=== PATIENT | female | born 1940 | race Caucasian/White ===

== ENCOUNTER 2017-03-30 12:16 | Emergency (ER) | payer MEDICARE, BC ==
[2017-03-30 12:28] VITALS: BP 161/100
== END 2017-03-30 13:23 | disposition left against medical advice (07) ==
LOC: ED 12:16
DX: Z53.21 Procedure and treatment not carried out due to patient leaving prior to being seen by health care provider (principal)

== ENCOUNTER 2017-07-14 13:50 | Emergency (ER) | payer MEDICARE, BC ==
[2017-07-14] MEDS ORDERED: SODIUM CHLORIDE FLUSH 0.9% 10 ML SYRINGE IVP ONE (14:10)
--- NOTE | 2017-07-14 14:26 | ED Physician Documentation ---
PD HPI HEADACHE - Stated complaint Stated Complaint: MICHELE - Chief complaint Chief Complaint: Neuro - History obtained from History obtained from: Patient, Family - History of Present Illness Timing - onset: How many hours ago (6) Timing - onset during: Sleep Timing - duration: Hours (6) Timing - details: Gradual onset Pain level max: 9 Pain level now: 9 Worst headache ever?: No: Worst headache ever? Location: Left Quality: Throbbing, Aching Associated symptoms: No: Fever, Stiff neck, Nausea, Vomiting, Weakness, Numbness , Syncope, Seizure, Eye pain, Vision changes Improved by: Rest, Dark room Worsened by: Light, Noise Contributing factors: No: Possible carbon monoxide, Recent illness, Trauma Similar symptoms before: Diagnosis (migraines) Recently seen: Not recently seen Review of Systems Ten Systems: 10 systems reviewed and negative Constitutional: denies: Fever, Chills Eyes: denies: Photophobia Ears: denies: Ear pain Nose: denies: Rhinorrhea / runny nose, Congestion Throat: denies: Sore throat Cardiac: denies: Chest pain / pressure Respiratory: denies: Cough GI: denies: Nausea, Vomiting, Diarrhea Skin: denies: Rash Musculoskeletal: denies: Neck pain, Back pain Neurologic: denies: Focal weakness, Numbness, Confused, Altered mental status, Head injury, LOC PD PAST MEDICAL HISTORY - Past Medical History Past Medical History: Yes Cardiovascular: Hypertension Respiratory: None Neuro: CVA, TIA, Headache/migraine Endocrine/Autoimmune: None GI: GERD 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 : Incontinence HEENT: None Psych: None Musculoskeletal: None Derm: None - Past Surgical History Past Surgical History: Yes General: Bowel surgery, Hiatal hernia repair, Colonoscopy Ortho: Knee replacement - Present Medications Home Medications: Ambulatory Orders Medication Instructions Recorded Confirmed Hydrochlorothiazide 25 mg PO ONCEDAILY 02/11/14 03/30/17 Latanoprost 0.005% Ophth Drops 1 drop EACHEYE QPM 09/24/15 03/30/17 [Xalatan Ophth Drops] Multivitamin [Multiple Vitamins] 1 tab PO DAILY 10/24/16 03/30/17 Cephalexin [Keflex] 500 mg PO Q6H #20 capsule 07/14/17 - Allergies Allergies/Adverse Reactions: Allergies Allergy/AdvReac Type Severity Reaction Status Date / Time Sulfa (Sulfonamide Allergy Severe Itching Verified 10/24/16 04:29 Antibiotics) erythromycin base Allergy Intermediate Rash Verified 10/24/16 04:29 [Erythromycin Base] - Social History Does the pt smoke?: No Smoking Status: Never smoker Does the pt drink ETOH?: No Does the pt have substance abuse?: No - Immunizations Immunizations are current?: Yes - POLST Patient has POLST: Yes POLST Status: DNR PD ED PE NORMAL - Vitals Vital signs reviewed: Yes - General General: Alert and oriented X 3, No acute distress, Well developed/nourished - HEENT HEENT: Atraumatic, PERRL, EOMI, Ears normal, Moist mucous membranes, Pharynx benign, Other (No tenderness over the temporal artery bilaterally) - Neck Neck: Supple, no meningeal sign, No bony TTP, No adenopathy - Cardiac Cardiac: RRR, Strong equal pulses - Respiratory Respiratory: No respiratory distress, Clear bilaterally - Abdomen Abdomen: Soft, Non tender, Non distended - Back Back: No CVA TTP, No spinal TTP - Derm Derm: Warm and dry - Extremities Extremities: No tenderness to palpate - Neuro Neuro: Alert and oriented X 3, embedded nurse 2-12 intact, No motor deficit, No sensory deficit, Normal speech - Psych Psych: Normal mood, Normal affect Results - Vitals Vitals: Vital Signs - 24 hr 07/14/17 07/14/17 07/14/17 13:57 15:26 16:41 Temperature 36.5 C Heart Rate 89 76 75 Respiratory 18 16 17 Rate Blood Pressure 150/89 H 170/89 H 140/88 H O2 Saturation 98 97 95 Oxygen O2 Source [] Room air O2 Source [] Room air O2 Source Room air - EKG (time done) 1409 Rate: Rate (enter#) (82) Rhythm: NSR [place]: Normal Intervals: Normal OK, RBBB QRS: LVH (with repol) Compare to prior EKG: Unchanged from prior EKG - Labs Labs: Microbiology 07/14/17 15:29 Urine Culture - Preliminary Urine,Random Laboratory Tests 07/14/17 07/14/17 07/14/17 14:17 14:17 14:17 WBC 11.5 H RBC 4.66 Hgb 14.2 Hct 41.3 MCV 88.6 MCH 30.4 MCHC 34.4 RDW 13.1 Plt Count 252 MPV 7.5 L Neut # 7.3 H Lymph # 2.5 [place] # 1.2 H Eos # 0.5 Baso # 0.1 Absolute Nucleated RBC 0.00 Nucleated RBCs 0.0 ESR 24 Sodium 138 Potassium 3.2 L Chloride 106 Carbon Dioxide 20 L Anion Gap 12.0 BUN 19 Creatinine 0.8 Estimated GFR (MDRD) 70 L Glucose 116 H POC Whole Bld Glucose Calcium 9.3 Total Bilirubin 0.7 AST 26 ALT 22 Alkaline Phosphatase 75 C-React Prot High Sens Total Protein 7.5 Albumin 3.9 Globulin 3.6 Albumin/Globulin Ratio 1.1 Lipase 25 Urine Color Urine Clarity Urine pH Ur Specific [place] Urine Protein Urine Glucose (UA) Urine Ketones Urine Occult Blood Urine Nitrite Urine Bilirubin Urine Urobilinogen Ur Leukocyte Esterase Urine RBC Urine WBC Ur Squamous Epith Cells Amorphous Sediment Urine Bacteria Ur Microscopic Review Urine Culture Comments 07/14/17 07/14/17 07/14/17 14:17 14:18 15:29 WBC RBC Hgb Hct MCV MCH MCHC RDW Plt Count MPV Neut # Lymph # [place] # Eos # Baso # Absolute Nucleated RBC Nucleated RBCs ESR Sodium Potassium Chloride Carbon Dioxide Anion Gap BUN Creatinine Estimated GFR (MDRD) Glucose POC Whole Bld Glucose 112 H Calcium Total Bilirubin AST ALT Alkaline Phosphatase C-React Prot High Sens 66.2 Total Protein Albumin Globulin Albumin/Globulin Ratio Lipase Urine Color YELLOW Urine Clarity CLOUDY Urine pH 6.0 Ur Specific [place] <=1.005 Urine Protein NEGATIVE Urine Glucose (UA) NEGATIVE Urine Ketones NEGATIVE Urine Occult Blood NEGATIVE Urine Nitrite POSITIVE H Urine Bilirubin NEGATIVE Urine Urobilinogen 0.2 (NORMAL) Ur Leukocyte Esterase SMALL H Urine RBC 0-5 Urine WBC 11-25 H Ur Squamous Epith Cells FEW Squamous Amorphous Sediment Few Urine Bacteria Moderate H Ur Microscopic Review INDICATED Urine Culture Comments INDICATED - Rads (name of study) head CT Radiology: Prelim report reviewed, EMP read contemporaneously, See rad report ( Generalized age-related cortical atrophic changes and substantial chronic microangiopathic white matter changes without evidence of acute intracranial abnormality. 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 ) PD MEDICAL DECISION MAKING - ED course Complexity details: reviewed results, re-evaluated patient, considered differential, d/w patient, d/w family ED course: Patient is a 76-year-old female who presents to the emergency department with a left-sided headache. This is similar to her headaches in the past. She was concerned that she may have had a stroke, though there is no evidence of acute cerebrovascular accident on examination. No acute changes on head CT. No evidence of temporal arteritis. Treated for migraine headache and headache resolved. Patient is well-appearing, nontoxic. Afebrile. No vision changes. Patient and family counseled regarding signs and symptoms for which I believe and urgent re-evaluation would be necessary. Patient with good understanding of and agreement to plan and is comfortable going home at this time This document was made in part using voice recognition software. While efforts are made to proofread this document, sound alike and grammatical errors may occur. Patient was also found to have an incidental urinary tract infection and will place on antibiotics at home for this. Departure - Departure Disposition: Home, Self Care Clinical Impression: Migraine Qualifiers: Migraine type: unspecified Status migrainosus presence: without status migrainosus Intractability: not intractable Qualified Code(s): G43.909 - Migraine, unspecified, not intractable, without status migrainosus Urinary tract infection Qualifiers: Urinary tract infection type: acute cystitis Hematuria presence: without hematuria Qualified Code(s): N30.00 - Acute cystitis without hematuria Condition: Good Instructions: ED Headache Migraine, ED UTI Cystitis Female Follow-Up: Izaiah Meza MD [Primary Care Provider] - Within 1 week Prescriptions: Cephalexin [Keflex] 500 mg PO Q6H #20 capsule Comments: Return if you worsen. Take all antibiotics until gone. Discharge Date/Time: 07/14/17 17:53 NIHSS - Time Time: 14:10 - Level of Consciousness Level of consciousness: (0) Alert, Keenly responsive LOC Questions: (0) Answers both Q's correct LOC Commands: (0) Performs both correctly - Gaze Best Gaze: (0) Normal - Visual Visual: (0) No loss - Facial Palsy Facial Palsy: (0) Normal, symmetrical movement - Motor Arms (both separate) Motor Arm (right): (0) No drift Motor Arm (left): (0) No drift - Motor Legs (both separate) Motor Leg (right): (0) No drift Motor Leg (left): (0) No drift - Limb Ataxia Limb Ataxia: (0) Absent - Sensory Sensory: (0) Normal - Best Language Best Language: (0) No aphasia - Dysarthria Dysarthria: (0) Normal - Extinction and Inattention (formally neg Extinction and inattention: (0) No abnormality - Total Score/Results Total Score/Result: 0
[2017-07-14 14:39] LABS: BASOPHILS # (AUTO) 0.1 10^3/uL (0.0-0.1); BASOPHILS % (AUTO) 0.7 %; EOSINOPHILS # (AUTO) 0.5 10^3/uL (0.0-0.7); HCT - HEMATOCRIT 41.3 % (37.0-47.0); HGB - HEMOGLOBIN 14.2 g/dL (12.0-16.0); LYMPHOCYTES # (AUTO) 2.5 10^3/uL (1.5-3.5); LYMPHOCYTES % (AUTO) 21.4 %; MEAN CORPUSCULAR HEMOGLOBIN 30.4 pg (27.0-31.0); MEAN CORPUSCULAR HGB CONC 34.4 g/dL (32.0-36.0); MEAN CORPUSCULAR VOLUME 88.6 fL (81.0-99.0); MEAN PLATELET VOLUME 7.5 fL (7.9-10.8); MONOCYTES # (AUTO) 1.2 10^3/uL (0.0-1.0); MONOCYTES % (AUTO) 10.6 %; NEUTROPHILS # (AUTO) 7.3 10^3/uL (1.5-6.6); NEUTROPHILS % (AUTO) 63.3 %; RED BLOOD COUNT 4.66 10^6/uL (4.20-5.40); RED CELL DISTRIBUTION WIDTH 13.1 % (12.0-15.0); UNCORRECTED WHITE BLOOD COUNT 11.5 x10^3/uL; WHITE BLOOD COUNT 11.5 x10^3/uL (4.8-10.8)
[2017-07-14 14:45] LABS: ALBUMIN/GLOBULIN RATIO 1.1 (1.0-2.2); BILIRUBIN,TOTAL 0.7 mg/dL (0.2-1.0); CALCIUM 9.3 mg/dL (8.5-10.3); CREATININE 0.8 mg/dL (0.4-1.0); POTASSIUM 3.2 mmol/L (3.5-5.0); TOTAL PROTEIN 7.5 g/dL (6.7-8.2)
--- NOTE | 2017-07-14 15:01 | CT Preliminary Report ---
Exam: CT Head W/O IMPRESSION: 1. Generalized age-related cortical atrophic changes and substantial chronic microangiopathic white m atter changes without evidence of acute intracranial abnormality. 2. 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 [facility] SITE ID: [id number]
[2017-07-14] MEDS ORDERED: SUMAtriptan 6 MG/0.5 ML VIAL SUBQ STA (15:03)
--- NOTE | 2017-07-14 15:04 | CT Report ---
EXAM: CT HEAD EXAM DATE: 07/14/2017 02:47 PM. CLINICAL HISTORY: L sided headache. COMPARISON: Head CT 03/18/2016. TECHNIQUE: Multiaxial CT images were obtained from the foramen magnum to the vertex. IV contrast: Non e. Reformats: Coronal. In accordance with CT protocol optimization, one or more of the following dose reduction techniques w ere utilized for this exam: automated exposure control, adjustment of mA and/or KV based on patient s ize, or use of iterative reconstructive technique. FINDINGS: Parenchyma: No intraparenchymal hemorrhage. No evidence of mass, midline shift, or CT findings of acu te infarction. Stable large old right parietal infarct. Lorenz-white differentiation is distinct. Extraaxial Spaces: Normal for age. No subdural or epidural collections identified. Ventricles: The ventricles and cortical sulci are enlarged, consistent with age-related tissue loss. Sinuses: Imaged paranasal sinuses, orbits, and mastoids show no significant abnormality. Bones: No evidence of fracture or calvarial defect. Other: Substantial, diffuse chronic microangiopathic white matter changes are without substantial yue nge. IMPRESSION: 1. Generalized age-related cortical atrophic changes and substantial chronic microangiopathic white m atter changes without evidence of acute intracranial abnormality. 2. 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 [facility] Referring Provider Line: [phone] SITE ID: [id number]
[2017-07-14] MEDS ORDERED: SUMAtriptan 6 MG/0.5 ML VIAL SUBQ ONE (15:11)
[2017-07-14 15:46] LABS: BILIRUBIN,URINE NEGATIVE (NEGATIVE)
[2017-07-14 15:58] LABS: UA w/ MICROSCOPIC CHARGE YES
[2017-07-14] MEDS ORDERED: diphenhydrAMINE INJ 50 MG/ML VIAL IVP STA (15:58)
[2017-07-14] MEDS ORDERED: PROMETHAZINE INJ 12.5 MG in SODIUM CHLORIDE 0.9% 50 ML IV STA (15:58)
[2017-07-14] MEDS ORDERED: KETOROLAC 60 MG/2 ML VIAL IVP STA (15:58)
[2017-07-14] MEDS ORDERED: cefTRIAXone 1 GM VIAL IVP STA (15:59)
[2017-07-14 16:14] LABS: UR CULTURE IF IND INDICATED
[2017-07-14] MEDS ORDERED: PROMETHAZINE 25 MG/1 ML VIAL ONE (16:28)
[2017-07-14] MEDS ORDERED: KETOROLAC 30 MG/ML VIAL ONE (16:28)
[2017-07-14] MEDS ORDERED: diphenhydrAMINE INJ 50 MG/ML VIAL ONE (16:28)
[2017-07-14] MEDS ORDERED: cefTRIAXone 1 GM VIAL ONE (16:28)
[2017-07-14 16:41] VITALS: BP 140/88
== END 2017-07-14 17:53 | disposition home or self-care (01) ==
LOC: ED 13:50
DX: G43.909 Migraine, unspecified, not intractable, without status migrainosus (principal); N30.00 Acute cystitis without hematuria; I45.10 Unspecified right bundle-branch block; I10 Essential (primary) hypertension; Z86.73 Personal history of transient ischemic attack (TIA), and cerebral infarction without residual deficits; Z96.659 Presence of unspecified artificial knee joint
CPT/HCPCS: 36415; 70450; 80053; 81001; 83690; 85025; 85651; 86141; 87077; 87086; 87181; 93005; 96365; 96372; 96375; 99284; 99285; J7040; 81003

== ENCOUNTER 2018-02-27 04:23 | Emergency (ER) | payer MEDICARE, BC ==
[2018-02-27] MEDS ORDERED: KETOROLAC 60 MG/2 ML VIAL IVP STA (04:58)
[2018-02-27] MEDS ORDERED: SODIUM CHLORIDE 0.9% 1,000 ML IV ONE (04:58)
[2018-02-27] MEDS ORDERED: DEXAMETHASONE 10 MG/ML VIAL PO STA (04:58)
--- NOTE | 2018-02-27 04:58 | ED Physician Documentation ---
PD HPI HEADACHE - Stated complaint Stated Complaint: H/A - Chief complaint Chief Complaint: Neuro - History obtained from History obtained from: Patient, Family - History of Present Illness Timing - onset: Enter time (2199), Last night Timing - onset during: Rest Timing - duration: Hours Timing - details: Gradual onset, Still present Worst headache ever?: No: Worst headache ever? Location: Right, Left Quality: Throbbing Associated symptoms: No: Fever, Stiff neck, Nausea, Vomiting, Weakness, Numbness , Syncope, Seizure, Eye pain, Vision changes Improved by: Rest Worsened by: Moving Contributing factors: No: Anticoagulated Similar symptoms before: Diagnosis (migraine) Recently seen: Not recently seen - Additional information Additional information: 77-year-old female with a history of CVA previously and migraine has developed a bitemporal headache at about 10 PM last night. She was not able to control this with Excedrin and she is come into the emergency department this morning early. She has not been able to sleep throughout the night. She has had previous workup of similar headaches to include CT angiogram and CT. She is not having strokelike symptoms she is not having numbness tingling or weakness she is not having difficulty with speech or ambulation. Review of Systems Constitutional: denies: Fever, Chills, Myalgias, Fatigue Eyes: denies: Loss of vision, Decreased vision Ears: denies: Ear pain Nose: denies: Rhinorrhea / runny nose, Congestion Throat: denies: Sore throat Cardiac: denies: Chest pain / pressure, Palpitations Respiratory: denies: Dyspnea, Cough GI: denies: Abdominal Pain, Nausea, Vomiting : denies: Dysuria, Frequency Skin: denies: Rash Musculoskeletal: denies: Neck pain, Back pain, Extremity pain Neurologic: reports: Headache. 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 HEENT: None Psych: None Musculoskeletal: None Derm: None - Past Surgical History Past Surgical History: Yes General: Bowel surgery, Hiatal hernia repair, Colonoscopy Ortho: Knee replacement - Present Medications Home Medications: Ambulatory Orders Medication Instructions Recorded Confirmed Hydrochlorothiazide 25 mg PO ONCEDAILY 02/11/14 03/30/17 Latanoprost 0.005% Ophth Drops 1 drop EACHEYE QPM 09/24/15 03/30/17 [Xalatan Ophth Drops] Multivitamin [Multiple Vitamins] 1 tab PO DAILY 10/24/16 03/30/17 Cephalexin [Keflex] 500 mg PO Q6H #20 capsule 07/14/17 - Allergies Allergies/Adverse Reactions: Allergies Allergy/AdvReac Type Severity Reaction Status Date / Time Sulfa (Sulfonamide Allergy Severe Itching Verified 02/27/18 04:33 Antibiotics) erythromycin base Allergy Intermediate Rash Verified 02/27/18 04:33 [Erythromycin Base] - Social History Does the pt smoke?: No Smoking Status: Never smoker Does the pt drink ETOH?: No Does the pt have substance abuse?: No - Immunizations Immunizations are current?: Yes - POLST Patient has POLST: Yes POLST Status: DNR PD ED PE NORMAL - Vitals Vital signs reviewed: Yes (Hypertensive) - General General: Alert and oriented X 3, No acute distress, Well developed/nourished - HEENT HEENT: Atraumatic, PERRL, EOMI, Ears normal, Other (Dry mucous membranes) - Neck Neck: Supple, no meningeal sign, No bony TTP - Cardiac Cardiac: RRR, No murmur - Respiratory Respiratory: No respiratory distress, Clear bilaterally - Abdomen Abdomen: Soft, Non tender - Back Back: No CVA TTP, No spinal TTP - Derm Derm: Normal color, Warm and dry, No rash - Extremities Extremities: No deformity, No edema - Neuro Neuro: Alert and oriented X 3, emulsion operator 2-12 intact, No motor deficit, No sensory deficit, Normal speech Eye Opening: Spontaneous Motor: Obeys Commands Verbal: Oriented GCS Score: 15 - Psych Psych: Normal mood, Normal affect Results - Vitals Vitals: Vital Signs - 24 hr 02/27/18 02/27/18 04:31 05:38 Temperature 364 C H Heart Rate 95 97 Respiratory 20 16 Rate Blood Pressure 155/97 H 155/73 H O2 Saturation 99 100 Oxygen O2 Source [] Room air O2 Source [] Room air O2 Source Room air Procedures - IVC sono (time) 0500 Bedside IVC sono: IVC measures (cm) (1.07), IVC collapsed c insp (cm) (complete) , Dehydration (est 1 liter deficit) PD MEDICAL DECISION MAKING - ED course Complexity details: reviewed old records, reviewed results, re-evaluated patient , considered differential, d/w patient, d/w family ED course: 77-year-old female with a history of migraine headache has developed a headache bitemporal in nature without vomiting. I have reviewed this patient's past history and it does appear she has had headache previously that is responded to treatment for migraine. She has had prior workups including CT angios of the head and has known aneurysm. She does not feel that this is the issue tonight. On exam she appears well and she is given IV saline, toradal, decadron, compazine and benadrly,. Departure - Departure Disposition: 01 Home, Self Care Clinical Impression: Headache Qualifiers: Headache type: unspecified Headache chronicity pattern: acute headache Intractability: not intractable Qualified Code(s): R51 - Headache Condition: Stable Instructions: ED Headache Migraine Follow-Up: Izaiah Meza MD [Primary Care Provider] -
[2018-02-27] MEDS ORDERED: PROCHLORPERAZINE 10 MG/2 ML VIAL IVP STA (04:59)
[2018-02-27] MEDS ORDERED: diphenhydrAMINE INJ 50 MG/ML VIAL IVP STA (04:59)
[2018-02-27 06:52] VITALS: BP 150/70
== END 2018-02-27 06:51 | disposition home or self-care (01) ==
LOC: ED 04:23
DX: R51 Headache (principal); I10 Essential (primary) hypertension; K21.9 Gastro-esophageal reflux disease without esophagitis; Z86.73 Personal history of transient ischemic attack (TIA), and cerebral infarction without residual deficits
CPT/HCPCS: 96361; 96374; 96375; 99283; 99284; J1200

== ENCOUNTER 2019-01-25 01:27 | Emergency (ER) | payer MEDICARE, BC ==
[2019-01-25] MEDS ORDERED: KETOROLAC 30 MG/ML VIAL IVP STA (01:59)
[2019-01-25] MEDS ORDERED: DEXAMETHASONE 10 MG/ML VIAL IVP STA (01:59)
[2019-01-25] MEDS ORDERED: SODIUM CHLORIDE 0.9% 1,000 ML IV ONE (01:59)
[2019-01-25] MEDS ORDERED: PROCHLORPERAZINE 10 MG/2 ML VIAL IVP STA (01:59)
[2019-01-25] MEDS ORDERED: diphenhydrAMINE INJ 50 MG/ML VIAL IVP STA (01:59)
--- NOTE | 2019-01-25 02:02 | ED Physician Documentation ---
PD HPI HEADACHE - Stated complaint Stated Complaint: MICHELE - Chief complaint Chief Complaint: Neuro - History obtained from History obtained from: Patient, Family - History of Present Illness Timing - onset: Enter time (2230), Last night Timing - onset during: Rest Timing - duration: Hours Timing - details: Abrupt onset, Still present Worst headache ever?: No: Worst headache ever? Location: Front Quality: Throbbing Associated symptoms: No: Fever, Stiff neck, Nausea, Vomiting, Weakness, Numbness, Syncope, Seizure, Eye pain, Vision changes Improved by: Rest, Dark room Worsened by: Light, Moving Contributing factors: No: Anticoagulated Similar symptoms before: Diagnosis (migraine and cerebral aneurysm) Recently seen: Not recently seen - Additional information Additional information: 78-year-old female with a prior history of CVA with cerebral aneurysm has developed a headache at about 1030 last night. She took some Excedrin and some aspirin without relief she is coming to the emergency department early this morning with a headache. This is similar to her presentation in February 2018 at which time she was given treatment for migraine headache with improvement. She does not have any lateralizing findings is not having any confusion or speech difficulty. Review of Systems Constitutional: denies: Fever, Chills, Myalgias Eyes: denies: Decreased vision Ears: denies: Ear pain Nose: denies: Rhinorrhea / runny nose, Congestion Throat: denies: Sore throat Cardiac: denies: Chest pain / pressure, Palpitations Respiratory: denies: Dyspnea GI: denies: Abdominal Pain, Nausea, Vomiting : denies: Dysuria, Frequency Skin: denies: Rash Musculoskeletal: denies: Neck pain, Back pain, Extremity pain, Joint pain Neurologic: reports: Headache. 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 HEENT: None Psych: None Musculoskeletal: None Derm: None - Past Surgical History Past Surgical History: Yes General: Bowel surgery, Hiatal hernia repair, Colonoscopy Ortho: Knee replacement - Present Medications Home Medications: Ambulatory Orders Medication Instructions Recorded Confirmed Hydrochlorothiazide 25 mg PO ONCEDAILY 02/11/14 03/30/17 Latanoprost 0.005% Ophth Drops 1 drop EACHEYE QPM 09/24/15 03/30/17 [Xalatan Ophth Drops] Multivitamin [Multiple Vitamins] 1 tab PO DAILY 10/24/16 03/30/17 Cephalexin [Keflex] 500 mg PO Q6H #20 capsule 07/14/17 - Allergies Allergies/Adverse Reactions: Allergies Allergy/AdvReac Type Severity Reaction Status Date / Time Sulfa (Sulfonamide Allergy Severe Itching Verified 01/25/19 01:40 Antibiotics) erythromycin base Allergy Intermediate Rash Verified 01/25/19 01:40 [Erythromycin Base] - Social History Does the pt smoke?: No Smoking Status: Never smoker Does the pt drink ETOH?: No Does the pt have substance abuse?: No - Immunizations Immunizations are current?: Yes - POLST Patient has POLST: Yes POLST Status: DNR PD ED PE NORMAL - Vitals Vital signs reviewed: Yes (tachy and hypertensive ) - General General: Alert and oriented X 3, Well developed/nourished - HEENT HEENT: Atraumatic, PERRL, EOMI, Ears normal, Other (dry mucous membranes ) - Neck Neck: Supple, no meningeal sign, No bony TTP - Cardiac Cardiac: Other (tachy to 110 2/6 holosystolic murmer at LSB ) - Respiratory Respiratory: No respiratory distress, Clear bilaterally - Abdomen Abdomen: Soft, Non tender - Back Back: No CVA TTP, No spinal TTP - Derm Derm: Normal color, Warm and dry, No rash - Extremities Extremities: No deformity, No edema - Neuro Neuro: Alert and oriented X 3, 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, No motor deficit, No sensory deficit, Normal speech Eye Opening: Spontaneous Motor: Obeys Commands Verbal: Oriented GCS Score: 15 - Psych Psych: Normal mood, Normal affect Results - Vitals Vitals: Vital Signs - 24 hr 01/25/19 01/25/19 01/25/19 01:38 02:30 02:32 Temperature 36.3 C L Heart Rate 105 H 101 H 108 H Respiratory 18 19 18 Rate Blood Pressure 144/81 H 172/95 H 161/82 H O2 Saturation 97 96 95 01/25/19 01/25/19 01/25/19 02:52 03:05 03:21 Temperature Heart Rate 97 91 Respiratory 18 19 16 Rate Blood Pressure 150/72 H O2 Saturation 95 95 03/16/19 03:45 Temperature Heart Rate 90 Respiratory 16 Rate Blood Pressure 163/82 H O2 Saturation 96 Oxygen O2 Source [] Room air O2 Source [] Room air O2 Source Room air - Rads (name of study) CT head without Radiology: Prelim report reviewed (Impression remote right parietal infarct age- related cortical atrophic changes without evidence of acute intracranial abnormality.), EMP read indepedently, See rad report Procedures - IVC sono (time) 0155 Bedside IVC sono: IVC measures (cm) (0.94), IVC collapsed c insp (cm) (complete), Dehydration (est 1-2 liter deficit) PD MEDICAL DECISION MAKING - ED course Complexity details: reviewed old records, reviewed results, re-evaluated patient, considered differential, d/w patient, d/w family ED course: 78-year-old female with a prior history of cerebral aneurysm and stroke has developed a headache that has not responded to her usual treatment. She presents to the emerge department with severe headache is found to be dehydrated is administered a cocktail of saline Decadron Compazine Benadryl Toradol and does not get adequate relief of her pain with this. She is subsequently administered 1 mg of Dilaudid with improvement. Because of her failure to improve with the initial cocktail CT scanning of the head was undertaken as well which did not demonstrate any new findings. Departure - Departure Disposition: 01 Home, Self Care Clinical Impression: Headache Qualifiers: Headache type: unspecified Headache chronicity pattern: acute headache Intractability: not intractable Qualified Code(s): R51 - Headache Condition: Stable Instructions: ED Headache Migraine Follow-Up: Izaiah Meza MD [Primary Care Provider] -
[2019-01-25] MEDS ORDERED: HYDROmorphone 1 MG/ML CARPUJECT IVP STA (02:59)
--- NOTE | 2019-01-25 04:09 | CT Report ---
Reason: headache hx of aneurysm Procedure Date: 01/25/2019 Accession Number: [id number] / [id number] Procedure: CT - HEAD WO CPT Code: FULL RESULT: EXAM: CT HEAD EXAM DATE: 01/25/2019. CLINICAL HISTORY: Headache, history of aneurysm COMPARISON: Head CT 07/14/2017. TECHNIQUE: Multiaxial CT images were obtained from the foramen magnum to the vertex. Reformats: Coronal and sagittal. IV contrast: None. In accordance with CT protocol optimization, one or more of the following dose reduction techniques were utilized for this exam: automated exposure control, adjustment of mA and/or KV based on patient size, or use of iterative reconstructive technique. FINDINGS: Parenchyma: No intraparenchymal hemorrhage. No evidence of mass, midline shift, or CT findings of acute infarction. There is a remote right parietal infarct.. Diffuse chronic microangiopathic white matter changes are evident. Extraaxial Spaces: Normal for age. No subdural or epidural collections identified. Ventricles: The ventricles and cortical sulci are enlarged, consistent with age-related tissue loss. Sinuses and orbits: Imaged paranasal sinuses, orbits, and mastoids show no significant abnormality. Bones: No evidence of fracture or calvarial defect. Other: There are prominent vascular calcifications.. IMPRESSION: Remote right parietal infarct and generalized age-related cortical atrophic changes without evidence of acute intracranial abnormality. [facility]
[2019-01-25 04:38] VITALS: BP 132/76
== END 2019-01-25 04:38 | disposition home or self-care (01) ==
LOC: ED 01:27
DX: R51 Headache (principal); E86.0 Dehydration; I10 Essential (primary) hypertension; Z86.73 Personal history of transient ischemic attack (TIA), and cerebral infarction without residual deficits
CPT/HCPCS: 70450; 96361; 96374; 96375; 99283; 99284; J1170; J1200

== ENCOUNTER 2019-03-03 16:06 | Outpatient (CLI) | payer MEDICARE, BC ==
--- NOTE | 2019-03-04 11:03 | XRAY Report ---
Reason: COUGH X12 DAYS Procedure Date: 03/03/2019 Accession Number: [id number] / [id number] Procedure: XR - Chest 2 View X-Ray CPT Code: 11975 FULL RESULT: EXAM: CHEST RADIOGRAPHY EXAM DATE: 03/03/2019 05:02 PM. CLINICAL HISTORY: Cough x12 days. COMPARISON: CHEST 2 VIEW PA/LAT 10/24/2016 4:33 AM. TECHNIQUE: 2 views. FINDINGS: Lungs/Pleura: No focal opacities evident. No pleural effusion. No pneumothorax. Normal volumes. Mediastinum: Cardiomediastinal contour with mildly tortuous aorta is stable, minimal subtle aortic arch calcifications. Other: Surgical clips are seen projecting over the upper mid abdomen and right upper quadrant. IMPRESSION: No definite airspace disease is detected. RADIA
== END 2019-03-03 16:07 | disposition home or self-care (01) ==
LOC: DI 16:06
PROVIDERS: ATTEND Physician Assistant Medical
DX: R05 Cough (principal); R06.02 Shortness of breath
CPT/HCPCS: 71046

== ENCOUNTER 2019-05-26 04:14 | Emergency (ER) | payer MEDICARE, BC ==
--- NOTE | 2019-05-26 04:26 | ED Physician Documentation ---
PD HPI FOCAL NEURO - Stated complaint Stated Complaint: HD PX/NAUSEA - History obtained from History obtained from: Patient - History of Present Illness Timing - onset: How many hours ago (unknown) Timing - duration: Hours Timing - details: Abrupt onset, Still present, Constant, Still present in ED Time of symptom onset unknown: Time of onset unknown Severity of deficit: Mild Weakness: Other (Denies) Numbness: Other (Denies) Associated symptoms: Headache. No: Nausea / vomiting, Seizure, Syncope, Fall, Head injury Contributing factors: negative: Anticoagulated Baseline status: positive: A&OX3, ambulatory, indep Similar symptoms before: Diagnosis (Prior history of stroke with identical symptoms) Recently seen: Not recently seen - Additional information Additional information: This is a 78-year-old woman who presents with complaints that she think she is having another stroke. She had has a headache that began this afternoon and its kind of coming into the bitemporal region. It is a 9 out of 10 with abrupt onset at the same severity. She denies nausea or vomiting. She took some Excedrin but that did not seem to alleviate her symptoms. 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 She has not noted any acute visual changes. Denies numbness or tingling. With her prior stroke she does not recall getting TPA. Patient denies chest pain, palpitations, shortness of breath or dysuria. She does take a baby aspirin daily. Patient lives with her whom she says is in poor health with back pain. He went for an MRI 2 days ago they have not gotten that read them at home. Some friends just arrived yesterday to visit. They are the ones that brought her into the emergency department. 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 denies: Generalized weakness, Focal weakness, Numbness, Difficulty speaking, Syncope, Confused PD PAST MEDICAL HISTORY - Past Medical History Cardiovascular: Hypertension Respiratory: None Neuro: None Endocrine/Autoimmune: None GI: GERD LURE MAKER: None : Incontinence HEENT: None Psych: None Musculoskeletal: None Derm: None - Past Surgical History Past Surgical History: Yes General: Bowel surgery, Hiatal hernia repair, Colonoscopy Ortho: Knee replacement - Present Medications Home Medications: Ambulatory Orders Medication Instructions Recorded Confirmed Hydrochlorothiazide 25 mg PO ONCEDAILY 02/11/14 03/30/17 Latanoprost 0.005% Ophth Drops 1 drop EACHEYE QPM 09/24/15 03/30/17 [Xalatan Ophth Drops] Multivitamin [Multiple Vitamins] 1 tab PO DAILY 10/24/16 03/30/17 Cephalexin [Keflex] 500 mg PO Q6H #20 capsule 07/14/17 - Allergies Allergies/Adverse Reactions: Allergies Allergy/AdvReac Type Severity Reaction Status Date / Time Sulfa (Sulfonamide Allergy Severe Itching Verified 05/26/19 04:24 Antibiotics) erythromycin base Allergy Intermediate Rash Verified 05/26/19 04:24 [Erythromycin Base] - Social History Does the pt smoke?: No Smoking Status: Never smoker Does the pt drink ETOH?: No Does the pt have substance abuse?: No - Immunizations Immunizations are current?: Yes - POLST Patient has POLST: Yes POLST Status: DNR PD ED PE NORMAL - Vitals Vital signs reviewed: Yes - General General: Alert and oriented X 3, No acute distress, Well developed/nourished, Other (She is holding her head in her hands and then will intermittently push down on the top of her head with 1 of her hands.) - HEENT HEENT: Atraumatic, PERRL, EOMI, Other (Dry mucous membranes) - Neck Neck: No adenopathy, Thyroid normal - Cardiac Cardiac: RRR, No murmur - Respiratory Respiratory: No respiratory distress, Clear bilaterally - Abdomen Abdomen: Normal bowel sounds, Soft, Non tender - Derm Derm: Normal color, Warm and dry, No rash - Extremities Extremities: No edema - Neuro Neuro: Alert and oriented X 3, No motor deficit, No sensory deficit, Normal speech, Other (Patient has a visual field deficit in both eyes down to about 30 degrees medial and lateral.) - Psych Psych: Normal mood, Normal affect Results - Vitals Vitals: Vital Signs - 24 hr 05/26/19 05/26/19 05/26/19 04:18 04:26 04:32 Temperature 36.5 C Heart Rate 95 85 86 Respiratory 16 20 Rate Blood Pressure 132/101 H 130/93 H O2 Saturation 96 96 94 05/26/19 05/26/19 05/26/19 05:14 06:14 07:06 Temperature Heart Rate 80 75 74 Respiratory 20 16 16 Rate Blood Pressure 151/87 H 168/71 H 140/84 H O2 Saturation 97 98 98 Oxygen O2 Source [] Room air O2 Source [] Room air O2 Source Room air - EKG (time done) 0424 Rate: Rate (enter#) Rhythm: NSR Intervals: RBBB QRS: LVH Ischemia: Non specific changes Compare to prior EKG: Old EKG unavailable Computer interpretation: Agree with computer 0635 Rate: Rate (enter#) Rhythm: NSR Intervals: RBBB QRS: LVH Ischemia: Non specific changes, Other (T wave inversions diffusely) - Labs Labs: Laboratory Tests 05/26/19 05/26/19 05/26/19 04:24 04:30 04:30 WBC 6.6 RBC 4.92 Hgb 14.7 Hct 45.4 MCV 92.3 MCH 29.9 MCHC 32.4 RDW 13.2 Plt Count 314 MPV 9.1 Neut # (Auto) 2.8 Lymph # (Auto) 2.6 [place] # (Auto) 0.6 Eos # (Auto) 0.5 Baso # (Auto) 0.1 Absolute Nucleated RBC 0.00 Nucleated RBC % 0.0 PT 9.5 L INR 0.8 Sodium Potassium Chloride Carbon Dioxide Anion Gap BUN Creatinine Estimated GFR (MDRD) Glucose POC Whole Bld Glucose 106 H Calcium Troponin I Urine Color Urine Clarity Urine pH Ur Specific [place] Urine Protein Urine Glucose (UA) Urine Ketones Urine Occult Blood Urine Nitrite Urine Bilirubin Urine Urobilinogen Ur Leukocyte Esterase Urine RBC Urine WBC Ur Squamous Epith Cells Amorphous Sediment Urine Bacteria Ur Microscopic Review Urine Culture Comments 05/26/19 05/26/19 05/26/19 04:30 04:30 05:58 WBC RBC Hgb Hct MCV MCH MCHC RDW Plt Count MPV Neut # (Auto) Lymph # (Auto) [place] # (Auto) Eos # (Auto) Baso # (Auto) Absolute Nucleated RBC Nucleated RBC % PT INR Sodium 140 Potassium 4.0 Chloride 106 Carbon Dioxide 20 L Anion Gap 14.0 H BUN 12 Creatinine 0.9 Estimated GFR (MDRD) 60 L Glucose 107 H POC Whole Bld Glucose Calcium 9.7 Troponin I < 0.04 Urine Color YELLOW Urine Clarity SL. CLOUDY Urine pH 6.5 Ur Specific [place] <=1.005 Urine Protein NEGATIVE Urine Glucose (UA) NEGATIVE Urine Ketones NEGATIVE Urine Occult Blood NEGATIVE Urine Nitrite NEGATIVE Urine Bilirubin NEGATIVE Urine Urobilinogen 0.2 (NORMAL) Ur Leukocyte Esterase SMALL H Urine RBC None Seen Urine WBC 6-10 H Ur Squamous Epith Cells FEW Squamous Amorphous Sediment Moderate Urine Bacteria Few Ur Microscopic Review INDICATED Urine Culture Comments INDICATED - Rads (name of study) CT head Radiology: See rad report CTA head and neck Radiology: See rad report PD MEDICAL DECISION MAKING - ED course Complexity details: reviewed old records, d/w patient, d/w family, d/w 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 I have ordered a CT angiogram of the head and neck. At this point I do not know if this visual field deficit is acute or from preceding strokes. She is pretty adamant that her left vision has been normal but there is clearly a visual field deficit in it now. After the patient returned from the CT angiogram she was having more headache and was given an additional 2 mg of morphine in addition to the 4 mg she had received previously. Her initial troponin was normal. Electrolytes and CBC were normal. Her EKG did not have any acute changes. The report on the CT angiogram subsequently was negative for any acute occlusion. 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 Given the unclear nature of the visual field deficit and the timing of its onset I elected to talk with the neurologist at [facility]. Dr. Bean recommended MRI scanning. Patient is clearly not a candidate for TPA because of the late Time of presentation. Dr. Bean agreed to be available for any further consultation. While I was talking on the phone with her the patient started complaining of chest pain. I had them obtain a repeat EKG does not show any acute changes from her previous EKG. I have added a second troponin to be drawn at 0730. Went and spoke to the patient and she just seemed very anxiousIV.. She agreed to take some Ativan IV. Care will be turned over to Dr. Jones. The patient may need to be admitted for an observation to complete the work-up but the hospitalist has not yet called me back.
[2019-05-26] MEDS ORDERED: ACETAMINOPHEN 325 MG TABLET PO STA (04:28)
[2019-05-26 04:41] LABS: BASOPHILS # (AUTO) 0.1 10^3/uL (0.0-0.1); BASOPHILS % (AUTO) 1.1 %; EOSINOPHILS # (AUTO) 0.5 10^3/uL (0.0-0.7); EOSINOPHILS % (AUTO) 8.2 %; HGB - HEMOGLOBIN 14.7 g/dL (12.0-16.0); LYMPHOCYTES # (AUTO) 2.6 10^3/uL (1.5-3.5); LYMPHOCYTES % (AUTO) 38.7 %; MEAN CORPUSCULAR HEMOGLOBIN 29.9 pg (27.0-31.0); MEAN CORPUSCULAR HGB CONC 32.4 g/dL (32.0-36.0); MEAN CORPUSCULAR VOLUME 92.3 fL (81.0-99.0); MEAN PLATELET VOLUME 9.1 fL (7.9-10.8); MONOCYTES # (AUTO) 0.6 10^3/uL (0.0-1.0); MONOCYTES % (AUTO) 9.1 %; NEUTROPHILS # (AUTO) 2.8 10^3/uL (1.5-6.6); NEUTROPHILS % (AUTO) 42.6 %; PLT - PLATELET COUNT 314 10^3/uL (130-450); RED BLOOD COUNT 4.92 10^6/uL (4.20-5.40); RED CELL DISTRIBUTION WIDTH 13.2 % (12.0-15.0); WHITE BLOOD COUNT 6.6 x10^3/uL (4.8-10.8)
[2019-05-26 04:51] LABS: INR 0.8 (0.8-1.2); PT - PROTHROMBIN TIME 9.5 secs (9.9-12.6)
[2019-05-26 04:54] LABS: CALCIUM 9.7 mg/dL (8.5-10.3); CREATININE 0.9 mg/dL (0.4-1.0)
--- NOTE | 2019-05-26 04:56 | XRAY Report ---
Reason: chest pain Procedure Date: 05/26/2019 Accession Number: [id number] / [id number] Procedure: XR - Chest 1 View X-Ray CPT Code: 93454 FULL RESULT: EXAM: CHEST RADIOGRAPHY EXAM DATE: 05/26/2019 04:49 AM. CLINICAL HISTORY: Chest pain. COMPARISON: CHEST 2 VIEW 03/03/2019 4:46 PM. TECHNIQUE: 1 view. FINDINGS: Lungs/Pleura: No alveolar consolidation or pleural effusion seen. No pneumothorax. Mediastinum: Within exam limitations, heart is mildly enlarged. Other: Osteopenia. Postoperative changes at the gastroesophageal junction. IMPRESSION: 1. Mild cardiomegaly. No acute abnormality seen. RADIA
--- NOTE | 2019-05-26 05:01 | CT Report ---
Reason: Headache; visual field deficit Procedure Date: 05/26/2019 Accession Number: [id number] / [id number] Procedure: CT - Head W/O Stroke Protocol CPT Code: FULL RESULT: EXAM: CT HEAD EXAM DATE: 05/26/2019 04:43 AM. CLINICAL HISTORY: Headache; visual field deficit. COMPARISON: HEAD W/O 01/25/2019 3:11 AM ANGIO BRAIN W/O 03/20/2016 4:56 PM. TECHNIQUE: Multiaxial CT images were obtained from the foramen magnum to the vertex. Reformats: Sagittal and coronal. IV contrast: None. In accordance with CT protocol optimization, one or more of the following dose reduction techniques were utilized for this exam: automated exposure control, adjustment of mA and/or KV based on patient size, or use of iterative reconstructive technique. FINDINGS: Parenchyma: No intraparenchymal hemorrhage. No evidence of mass, midline shift, or CT findings of acute infarction. Lorenz-white differentiation is distinct. Encephalomalacia is again noted in the right parietal region from previous infarct. Confluent white matter hypodensity is unchanged. Extraaxial Spaces: Stable. No subdural or epidural collections identified. Ventricles: Stable size and appearance, again demonstrating diffuse atrophy. Sinuses and Orbits: Imaged paranasal sinuses, orbits, and mastoids show no significant abnormality.Changes of cataract extraction are noted. Bones: No evidence of fracture or calvarial defect. Other: Vascular calcification is again noted. IMPRESSION: 1. No evidence of acute hemorrhage. No definite CT evidence of acute infarct. CT is insensitive for detection of hyperacute infarct and in the setting of diffuse white matter hypodensity. Consider MRI for further evaluation if clinically warranted. 2. Remote right parietal infarct, unchanged. 3. Stable white matter changes typical of chronic microvascular ischemia. Stable diffuse atrophy. RADIA The critical test notification system was initiated by Dr. Nancy Coy at 04:53 AM on 05/26/2019. The above critical test findings were discussed with Jenifer Cisneros by Dr. Nancy Coy at 04:58 AM on 05/26/2019.
[2019-05-26] MEDS ORDERED: ONDANSETRON 4 MG/2 ML VIAL IVP STA (05:07)
[2019-05-26] MEDS ORDERED: MORPHINE 2 MG/ML CARPUJECT IVP STA ×2 (05:07→06:07)
[2019-05-26] MEDS ORDERED: IOVERSOL 320 100 ML VIAL IVP ONE ×2 (05:21→06:03)
[2019-05-26 06:13] LABS: BILIRUBIN,URINE NEGATIVE (NEGATIVE); GLUCOSE, URINE (UA) NEGATIVE (NEGATIVE); KETONES,URINE (UA) NEGATIVE (NEGATIVE); LEUKOCYTE ESTERASE, URINE SMALL (NEGATIVE); NITRITE,URINE NEGATIVE (NEGATIVE); OCCULT BLOOD,URINE NEGATIVE (NEGATIVE); PH,URINE 6.5 PH (5.0-7.5); PROTEIN,URINE NEGATIVE (NEGATIVE); UROBILINOGEN,URINE 0.2 (NORMAL) E.U./dL (NORMAL)
[2019-05-26 06:17] LABS: CLARITY,URINE SL. CLOUDY (CLEAR)
--- NOTE | 2019-05-26 06:21 | CT Report ---
Reason: headache; visual filed deficit Procedure Date: 05/26/2019 Accession Number: [id number] / [id number] Procedure: CT - ANGIO HEAD W/WO CPT Code: FULL RESULT: EXAM: CT ANGIOGRAM HEAD. CT SCAN OF THE HEAD WITHOUT AND WITH CONTRAST. EXAM DATE: 05/26/2019 05:58 AM CLINICAL HISTORY: Headache; visual filed deficit. COMPARISON: HEAD W/O STROKE PROTOCOL 05/26/2019 4:37 AM. Prior MR angiogram dated 03/20/2016 TECHNIQUE: - CT Scan Head: Using a multidetector scanner, axial images were acquired from the foramen magnum to the skull vertex following contrast administration. - CT Angiogram: Using a multidetector scanner, high-resolution axial images were acquired from the skull base through vertex following rapid infusion of intravenous contrast. Reformats: Multiplanar MIP reformats were reconstructed. Nascet criteria used for stenosis measurement. IV Contrast: OPTI 320 80ML. In accordance with CT protocol optimization, one or more of the following dose reduction techniques were utilized for this exam: automated exposure control, adjustment of mA and/or KV based on patient size, or use of iterative reconstructive technique. FINDINGS: POST-CONTRAST HEAD: No abnormal enhancement. CT ANGIOGRAM HEAD: RIGHT: Internal Carotid artery: Evaluation is slightly limited due to extensive vascular calcification. There is no evidence of acute dissection or thrombosis. No definite high-grade stenosis is visualized. Anterior Cerebral Artery: Patent without significant stenosis, aneurysm, or vascular malformation. Middle Cerebral Artery: Patent without significant stenosis, aneurysm, or vascular malformation. Mild irregularity again noted. Posterior Cerebral Artery: Patent without significant stenosis, aneurysm, or vascular malformation. Vertebral Artery: Extensive vascular calcification again noted. The vertebral artery is tortuous and mildly irregular. No definite high-grade stenosis is visualized. LEFT: Internal Carotid artery: Small pseudoaneurysm in the high left cervical ICA is unchanged. Anterior Cerebral Artery: Patent without significant stenosis, aneurysm, or vascular malformation. Middle Cerebral Artery: Patent without significant stenosis, aneurysm, or vascular malformation. Mild irregularity again noted. Posterior Cerebral Artery: Moderate focal narrowing noted at the origin. Peripheral branches appear patent. Vertebral Artery: Extensive vascular calcification again noted. The vertebral artery is tortuous and mildly irregular. No definite high-grade stenosis is visualized. CENTRAL: Anterior Communicating Artery: Patent. No aneurysm. Basilar Artery: Patent without significant stenosis. No aneurysm. DURAL VENOUS SINUSES AND MAJOR CENTRAL VEINS: Patent. IMPRESSION: CT Head: 1. No significant change compared with recent prior noncontrast head CT (dictated separately.) 2. No pathologic enhancement. 3. No evidence of acute hemorrhage. CTA Head: 1. 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 2. Extensive atherosclerotic calcification throughout the intracranial vasculature. 3. Stable scattered areas of atherosclerotic irregularity and narrowing throughout the intracranial circulation. This appears unchanged as previously described in detail, most pronounced at the origin of the left posterior cerebral artery. 4. No evidence of large vessel occlusion. RADIA
[2019-05-26 06:24] LABS: AMORPHOUS SEDIMENT,UR Moderate /LPF; BACTERIA,URINE Few /HPF (None Seen); RBC,URINE None Seen /HPF (0-5); SQUAMOUS EPITHELIAL CELL,UR FEW Squamous (<= Few)
--- NOTE | 2019-05-26 06:28 | CT Report ---
Reason: headache; visual field deficit Procedure Date: 05/26/2019 Accession Number: [id number] / [id number] Procedure: CT - ANGIO NECK W CPT Code: FULL RESULT: EXAM: CT ANGIOGRAM NECK EXAM DATE: 05/26/2019 06:00 AM. CLINICAL HISTORY: Headache; visual field deficit. COMPARISON: HEAD W/O STROKE PROTOCOL 05/26/2019 4:37 AM. TECHNIQUE: Routine axial helical imaging was performed from the skull base through the aortic arch. Reconstructions: Routine multiplanar 3D MIP reconstructions. IV Contrast: OPTI 320 80ML. Evaluation of arterial stenosis is based on a NASCET method of measurement. In accordance with CT protocol optimization, one or more of the following dose reduction techniques were utilized for this exam: automated exposure control, adjustment of mA and/or KV based on patient size, or use of iterative reconstructive technique. FINDINGS: The aortic arch demonstrates bovine configuration. The origins of the common carotid and vertebral arteries are widely patent. Right Carotid: The common carotid, internal carotid, and external carotid arteries are widely patent. No dissection, significant atherosclerotic plaque, or calcification identified. Left Carotid: The common carotid, internal carotid, and external carotid arteries are widely patent. Mild atherosclerotic plaque and calcification are visualized at the carotid bifurcation and proximal ICA. There is no hemodynamically significant ICA stenosis by NASCET criteria. Distal cervical ICA dissection/pseudoaneurysm appears unchanged in size or appearance compared to the prior examination. Vertebrals: The extracranial vertebral arteries show no high-grade stenosis or dissection. Other: Multilevel cervical spondylosis is most pronounced at C4-C7. No acute osseous abnormality is identified. IMPRESSION: 1. 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 2. Minimal atherosclerotic calcification at the left common carotid bifurcation and proximal ICA. No hemodynamically significant stenosis by NASCET criteria. 3. Otherwise unremarkable CT angiogram of the neck. RADIA
[2019-05-26] MEDS ORDERED: LIDOCAINE VISCOUS 2% 15 ML UDC MM STA (06:39)
[2019-05-26] MEDS ORDERED: MAG HYDROX/AL HYDROX/SIMETH 30 ML UDC PO STA (06:40)
[2019-05-26] MEDS ORDERED: LORazepam 2 MG/ML VIAL IVP STA (06:59)
[2019-05-26] MEDS ORDERED: SODIUM CHLORIDE 0.9% 1,000 ML IV ONE ×2 (07:43→10:29)
--- NOTE | 2019-05-26 07:44 | ED Physician Documentation ---
PD HPI HEADACHE - Stated complaint Stated Complaint: HD PX/NAUSEA - Chief complaint Chief Complaint: Neuro - History obtained from History obtained from: Patient - History of Present Illness Timing - onset: Yesterday Timing - onset during: Rest Timing - duration: Hours Timing - details: Abrupt onset Quality: Throbbing Improved by: Rest, Dark room Contributing factors: No: Anticoagulated Similar symptoms before: Diagnosis (headache and stroke) Recently seen: Not recently seen PD PAST MEDICAL HISTORY - Past Medical History Past Medical History: Yes Cardiovascular: Hypertension Respiratory: None Neuro: None Endocrine/Autoimmune: None GI: 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 HEENT: None Psych: None Musculoskeletal: None Derm: None - Past Surgical History Past Surgical History: Yes General: Bowel surgery, Hiatal hernia repair, Colonoscopy Ortho: Knee replacement - Present Medications Home Medications: Ambulatory Orders Medication Instructions Recorded Confirmed Hydrochlorothiazide 25 mg PO ONCEDAILY 02/11/14 03/30/17 Latanoprost 0.005% Ophth Drops 1 drop EACHEYE QPM 09/24/15 03/30/17 [Xalatan Ophth Drops] Multivitamin [Multiple Vitamins] 1 tab PO DAILY 10/24/16 03/30/17 Cephalexin [Keflex] 500 mg PO Q6H #20 capsule 07/14/17 Ciprofloxacin HCl [Cipro] 500 mg PO BID #14 tablet 05/26/19 - Allergies Allergies/Adverse Reactions: Allergies Allergy/AdvReac Type Severity Reaction Status Date / Time Sulfa (Sulfonamide Allergy Severe Itching Verified 05/26/19 04:24 Antibiotics) erythromycin base Allergy Intermediate Rash Verified 05/26/19 04:24 [Erythromycin Base] - Social History Does the pt smoke?: No Smoking Status: Never smoker Does the pt drink ETOH?: No Does the pt have substance abuse?: No - Immunizations Immunizations are current?: Yes - POLST Patient has POLST: Yes POLST Status: DNR Results - Vitals Vitals: Vital Signs - 24 hr 05/26/19 05/26/19 05/26/19 04:18 04:26 04:32 Temperature 36.5 C Heart Rate 95 85 86 Respiratory 16 20 Rate Blood Pressure 132/101 H 130/93 H O2 Saturation 96 96 94 05/26/19 05/26/19 05/26/19 05:14 06:14 07:06 Temperature Heart Rate 80 75 74 Respiratory 20 16 16 Rate Blood Pressure 151/87 H 168/71 H 140/84 H O2 Saturation 97 98 98 05/26/19 09:46 Temperature Heart Rate 87 Respiratory 18 Rate Blood Pressure 131/78 H O2 Saturation 96 Oxygen O2 Source [] Room air O2 Source [] Room air O2 Source Room air - Labs Labs: Laboratory Tests 05/26/19 05/26/19 05/26/19 04:24 04:30 04:30 WBC 6.6 RBC 4.92 Hgb 14.7 Hct 45.4 MCV 92.3 MCH 29.9 MCHC 32.4 RDW 13.2 Plt Count 314 MPV 9.1 Neut # (Auto) 2.8 Lymph # (Auto) 2.6 [place] # (Auto) 0.6 Eos # (Auto) 0.5 Baso # (Auto) 0.1 Absolute Nucleated RBC 0.00 Nucleated RBC % 0.0 PT 9.5 L INR 0.8 Sodium Potassium Chloride Carbon Dioxide Anion Gap BUN Creatinine Estimated GFR (MDRD) Glucose POC Whole Bld Glucose 106 H Calcium Troponin I Urine Color Urine Clarity Urine pH Ur Specific [place] Urine Protein Urine Glucose (UA) Urine Ketones Urine Occult Blood Urine Nitrite Urine Bilirubin Urine Urobilinogen Ur Leukocyte Esterase Urine RBC Urine WBC Ur Squamous Epith Cells Amorphous Sediment Urine Bacteria Ur Microscopic Review Urine Culture Comments 05/26/19 05/26/19 05/26/19 04:30 04:30 05:58 WBC RBC Hgb Hct MCV MCH MCHC RDW Plt Count MPV Neut # (Auto) Lymph # (Auto) [place] # (Auto) Eos # (Auto) Baso # (Auto) Absolute Nucleated RBC Nucleated RBC % PT INR Sodium 140 Potassium 4.0 Chloride 106 Carbon Dioxide 20 L Anion Gap 14.0 H BUN 12 Creatinine 0.9 Estimated GFR (MDRD) 60 L Glucose 107 H POC Whole Bld Glucose Calcium 9.7 Troponin I < 0.04 Urine Color YELLOW Urine Clarity SL. CLOUDY Urine pH 6.5 Ur Specific [place] <=1.005 Urine Protein NEGATIVE Urine Glucose (UA) NEGATIVE Urine Ketones NEGATIVE Urine Occult Blood NEGATIVE Urine Nitrite NEGATIVE Urine Bilirubin NEGATIVE Urine Urobilinogen 0.2 (NORMAL) Ur Leukocyte Esterase SMALL H Urine RBC None Seen Urine WBC 6-10 H Ur Squamous Epith Cells FEW Squamous Amorphous Sediment Moderate Urine Bacteria Few Ur Microscopic Review INDICATED Urine Culture Comments INDICATED 05/26/19 07:24 WBC RBC Hgb Hct MCV MCH MCHC RDW Plt Count MPV Neut # (Auto) Lymph # (Auto) [place] # (Auto) Eos # (Auto) Baso # (Auto) Absolute Nucleated RBC Nucleated RBC % PT INR Sodium Potassium Chloride Carbon Dioxide Anion Gap BUN Creatinine Estimated GFR (MDRD) Glucose POC Whole Bld Glucose Calcium Troponin I < 0.04 Urine Color Urine Clarity Urine pH Ur Specific [place] Urine Protein Urine Glucose (UA) Urine Ketones Urine Occult Blood Urine Nitrite Urine Bilirubin Urine Urobilinogen Ur Leukocyte Esterase Urine RBC Urine WBC Ur Squamous Epith Cells Amorphous Sediment Urine Bacteria Ur Microscopic Review Urine Culture Comments Procedures - IVC sono (time) 0738 Bedside IVC sono: IVC measures (cm) (0.78), Significant dehydration (est 2 liter deficit after 1 liter has already been given.) 1025 Bedside IVC sono: IVC measures (cm) (1.22), IVC collapsed c insp (cm) (complete), Dehydration (est 1 liter deficit) PD MEDICAL DECISION MAKING - ED course Complexity details: reviewed old records, reviewed results, re-evaluated patient, considered differential, d/w patient ED course: 78-year-old female with a headache is come to the emergency department and she has had treatment of her headache feels improved but remains significantly dehydrated. On my initial evaluation the patient has extremely dry mucous membranes and her initial IVC measurement is 0.79 cm consistent with a 2 L deficit. A second measurement is made after a liter of saline is administered and it is 1.22 cm consistent with a 1 L deficit. She is given further fluid. She feels improved. She is also given Rocephin intravenously for urinary tract infection. We will place her on some Cipro and asked her to discontinue her hydrochlorothiazide for 2 days. Departure - Departure Disposition: Home, Self Care Clinical Impression: Dehydration Urinary tract infection Qualifiers: Urinary tract infection type: acute cystitis Hematuria presence: without hematuria Qualified Code(s): N30.00 - Acute cystitis without hematuria Condition: Stable Instructions: ED Dehydration, ED UTI Cystitis Female Follow-Up: Izaiah Meza MD [Primary Care Provider] - Prescriptions: Ciprofloxacin HCl [Cipro] 500 mg PO BID #14 tablet Comments: Today you have a urinary tract infection and you are significantly dehydrated. I recommend you not take your hydrochlorothiazide for 2 days. I have prescribed some ciprofloxacin for the bladder infection and you were given a dose of Rocephin here in the emergency department.
[2019-05-26] MEDS ORDERED: cefTRIAXone 1 GM in SODIUM CHLORIDE 0.9% MINIBAG 100 ML IV STA (07:49)
[2019-05-26 09:48] VITALS: BP 131/78
== END 2019-05-26 11:41 | disposition home or self-care (01) ==
LOC: ED 04:14
DX: R51 Headache (principal); E86.0 Dehydration; N30.00 Acute cystitis without hematuria; R07.9 Chest pain, unspecified; I45.10 Unspecified right bundle-branch block; I10 Essential (primary) hypertension; I67.1 Cerebral aneurysm, nonruptured; H53.8 Other visual disturbances; F41.9 Anxiety disorder, unspecified; Z79.82 Long term (current) use of aspirin; Z66 Do not resuscitate
CPT/HCPCS: 36415; 70450; 70496; 70498; 71045; 80048; 81001; 84484; 85025; 85610; 87086; 93005; 96365; 96375; 96376; 99284; A9270; J2060; Q9967; 81003

== ENCOUNTER 2020-07-09 04:07 | Emergency (ER) | payer MEDICARE, BC ==
--- NOTE | 2020-07-09 04:13 | ED Physician Documentation ---
History of Present Illness - Stated complaint Stated Complaint: CP - History obtained from History obtained from: Patient - Additonal information Additional information: Patient is an 79-year-old female brought in by her with a chief complaint of chest pain. Patient has not been able to sleep all night and then proximally 30 minutes prior to arrival she is complaining of epigastric pain denies any history of [place] but reports she does have a history of stroke. She took a full dose aspirin prior to arrival. Denies any other complaints Review of Systems Constitutional: reports: Reviewed and negative Eyes: reports: Reviewed and negative Ears: reports: Reviewed and negative Nose: reports: Reviewed and negative Throat: reports: Reviewed and negative Cardiac: reports: Chest pain / pressure Respiratory: reports: Reviewed and negative GI: reports: Reviewed and negative : reports: Reviewed and negative Skin: reports: Reviewed and negative Musculoskeletal: reports: Reviewed and negative Neurologic: reports: Reviewed and negative Psychiatric: reports: Reviewed and negative Endocrine: reports: Reviewed and negative Immunocompromised: reports: Reviewed and negative PD PAST MEDICAL HISTORY - Past Medical History Cardiovascular: Hypertension Respiratory: None Neuro: CVA, Headaches Endocrine/Autoimmune: None 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 HEENT: None Psych: None Musculoskeletal: None Derm: None - Past Surgical History Past Surgical History: Yes General: Bowel surgery, Hiatal hernia repair, Colonoscopy Ortho: Knee replacement - Present Medications Home Medications: Ambulatory Orders Medication Instructions Recorded Confirmed Multivitamin [Multiple Vitamins] 1 tab PO DAILY 10/24/16 04/23/20 Lactobacillus Acidophilus 1 tab PO DAILY 12/19/19 04/23/20 [Probiotic Acidophilus] Nitrofurantoin Monohyd/M-Cryst 100 mg PO BID #10 capsule 07/09/20 [Macrobid 100 mg Capsule] - Allergies Allergies/Adverse Reactions: Allergies Allergy/AdvReac Type Severity Reaction Status Date / Time Sulfa (Sulfonamide Allergy Severe Itching Verified 07/09/20 04:18 Antibiotics) erythromycin base Allergy Intermediate Rash Verified 07/09/20 04:18 [Erythromycin Base] Iodinated Contrast Media Allergy Unknown Verified 07/09/20 04:18 - Social History Does the pt smoke?: No Smoking Status: Never smoker Does the pt drink ETOH?: No Does the pt have substance abuse?: No - Immunizations Immunizations are current?: Yes - POLST Patient has POLST: Yes POLST Status: DNR PD ED PE NORMAL - Vitals Vital signs reviewed: Yes - General General: Alert and oriented X 3, No acute distress, Well developed/nourished - HEENT HEENT: Atraumatic, PERRL - Neck Neck: Supple, no meningeal sign, No adenopathy, No JVD, No bruit - Cardiac Cardiac: RRR, No murmur, Strong equal pulses - Respiratory Respiratory: No respiratory distress, Clear bilaterally - Abdomen Abdomen: Normal bowel sounds, Soft, Non distended, No organomegaly, Other (No midline abdominal pulsatile mass diffuse tenderness in the epigastrium) - Female Female : Deferred - Rectal Rectal: Deferred - Back Back: No CVA TTP, No spinal TTP - Derm Derm: Normal color, Warm and dry, No rash - Extremities Extremities: No deformity, No tenderness to palpate, Normal ROM s pain, No edema, No calf tenderness / cord - Neuro Neuro: Alert and oriented X 3, teacher physically 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 RESULTS TO FOLLOW. Laboratory Tests 07/09/20 07/09/20 07/09/20 04:25 04:25 04:25 WBC 6.9 RBC 4.90 Hgb 14.4 Hct 44.0 MCV 89.8 MCH 29.4 MCHC 32.7 RDW 14.2 Plt Count 319 MPV 9.4 Neut # (Auto) 3.2 Lymph # (Auto) 2.4 [place] # (Auto) 0.6 Eos # (Auto) 0.7 Baso # (Auto) 0.1 Absolute Nucleated RBC 0.00 Nucleated RBC % 0.0 PT 11.0 INR 1.0 APTT 29.6 Sodium 138 Potassium 3.5 Chloride 106 Carbon Dioxide 19 L Anion Gap 13.0 BUN 17 Creatinine 0.8 Estimated GFR (MDRD) 69 L Glucose 122 H Lactic Acid Calcium 10.0 Total Bilirubin 0.5 AST 20 ALT 19 Alkaline Phosphatase 105 Total Creatine Kinase 45 Troponin I High Sens B-Natriuretic Peptide Total Protein 8.2 Albumin 4.4 Globulin 3.7 Albumin/Globulin Ratio 1.2 Lipase 35 Urine Color Urine Clarity Urine pH Ur Specific [place] Urine Protein Urine Glucose (UA) Urine Ketones Urine Occult Blood Urine Nitrite Urine Bilirubin Urine Urobilinogen Ur Leukocyte Esterase Urine RBC Urine WBC Ur Squamous Epith Cells Amorphous Sediment Urine Bacteria Ur Microscopic Review Urine Culture Comments 07/09/20 07/09/20 07/09/20 04:25 04:25 04:33 WBC RBC Hgb Hct MCV MCH MCHC RDW Plt Count MPV Neut # (Auto) Lymph # (Auto) [place] # (Auto) Eos # (Auto) Baso # (Auto) Absolute Nucleated RBC Nucleated RBC % PT INR APTT Sodium Potassium Chloride Carbon Dioxide Anion Gap BUN Creatinine Estimated GFR (MDRD) Glucose Lactic Acid 1.4 Calcium Total Bilirubin AST ALT Alkaline Phosphatase Total Creatine Kinase Troponin I High Sens 10.4 B-Natriuretic Peptide 48 Total Protein Albumin Globulin Albumin/Globulin Ratio Lipase Urine Color Urine Clarity Urine pH Ur Specific [place] Urine Protein Urine Glucose (UA) Urine Ketones Urine Occult Blood Urine Nitrite Urine Bilirubin Urine Urobilinogen Ur Leukocyte Esterase Urine RBC Urine WBC Ur Squamous Epith Cells Amorphous Sediment Urine Bacteria Ur Microscopic Review Urine Culture Comments 07/09/20 07/09/20 06:00 08:05 WBC RBC Hgb Hct MCV MCH MCHC RDW Plt Count MPV Neut # (Auto) Lymph # (Auto) [place] # (Auto) Eos # (Auto) Baso # (Auto) Absolute Nucleated RBC Nucleated RBC % PT INR APTT Sodium Potassium Chloride Carbon Dioxide Anion Gap BUN Creatinine Estimated GFR (MDRD) Glucose Lactic Acid Calcium Total Bilirubin AST ALT Alkaline Phosphatase Total Creatine Kinase Troponin I High Sens 9.4 B-Natriuretic Peptide Total Protein Albumin Globulin Albumin/Globulin Ratio Lipase Urine Color YELLOW Urine Clarity [place] Urine pH 6.5 Ur Specific [place] <=1.005 Urine Protein NEGATIVE Urine Glucose (UA) NEGATIVE Urine Ketones NEGATIVE Urine Occult Blood NEGATIVE Urine Nitrite POSITIVE H Urine Bilirubin NEGATIVE Urine Urobilinogen 0.2 (NORMAL) Ur Leukocyte Esterase NEGATIVE Urine RBC 0-5 Urine WBC 0-3 Ur Squamous Epith Cells FEW Squamous Amorphous Sediment Few Urine Bacteria Few Ur Microscopic Review INDICATED Urine Culture Comments INDICATED PD MEDICAL DECISION MAKING - ED course Complexity details: considered differential (acs, pe, biliary disease, peptic ulcer disease, pna, dissection, aneurysm, pancreatitis), other (patient signed out at shift change to dr. dave corbin) Departure - Departure Disposition: 01 Home, Self Care Clinical Impression: UTI (urinary tract infection), Coronary artery disease Chest pain Qualifiers: Chest pain type: unspecified Qualified Code(s): R07.9 - Chest pain, unspecified Condition: Stable Instructions: ED Heart Disease Risk Factors, ED UTI Cystitis Female Prescriptions: Nitrofurantoin Monohyd/M-Cryst [Macrobid 100 mg Capsule] 100 mg PO BID #10 capsule Comments: As we have discussed, your urine was positive for infection. Your CT scan showed possibly a small section of your bowel that is a little inflamed, but this may be an incidental finding, given that you are not having any symptoms to indicate this kind of illness. If this is present, it is usually caused by a virus and will pass on its own. As we have also discussed, the CT scan did show that you do have some thickening and hardening of the arteries in your heart. W hile there is no evidence of a heart attack today, it is important that you follow-up with your doctor to discuss approach to this and prevention measures so that you do not end up having a heart attack at some point in the future. For now, if you are not already taking an aspirin each day, it would be a good idea to start. You should also get some gentle exercise every day, as much as possible, and eat a diet that is high in fruits and vegetables and whole grains and low in meat and dairy. Please take the antibiotics every day, as directed, until the course is complete. If you develop any worsening symptoms or other concerns, please return to the emergency department immediately. Discharge Date/Time: 07/09/20 09:34
[2020-07-09] MEDS ORDERED: NITROGLYCERIN SL 0.4 MG TABLET SL PRN (04:22)
[2020-07-09] MEDS ORDERED: ONDANSETRON 4 MG/2 ML VIAL IVP STA (04:22)
[2020-07-09] MEDS ORDERED: SODIUM CHLORIDE 0.9% 1,000 ML IV STA (04:22)
[2020-07-09] MEDS ORDERED: MORPHINE 2 MG/ML CARPUJECT IVP STA ×2 (04:22→05:52)
[2020-07-09 04:33] LABS: BASOPHILS # (AUTO) 0.1 10^3/uL (0.0-0.1); BASOPHILS % (AUTO) 1.3 %; EOSINOPHILS # (AUTO) 0.7 10^3/uL (0.0-0.7); EOSINOPHILS % (AUTO) 9.5 %; HGB - HEMOGLOBIN 14.4 g/dL (12.0-16.0); LYMPHOCYTES # (AUTO) 2.4 10^3/uL (1.5-3.5); LYMPHOCYTES % (AUTO) 34.1 %; MEAN CORPUSCULAR HEMOGLOBIN 29.4 pg (27.0-31.0); MEAN CORPUSCULAR HGB CONC 32.7 g/dL (32.0-36.0); MEAN CORPUSCULAR VOLUME 89.8 fL (81.0-99.0); MEAN PLATELET VOLUME 9.4 fL (7.9-10.8); MONOCYTES # (AUTO) 0.6 10^3/uL (0.0-1.0); MONOCYTES % (AUTO) 8.7 %; NEUTROPHILS # (AUTO) 3.2 10^3/uL (1.5-6.6); PLT - PLATELET COUNT 319 10^3/uL (130-450); RED CELL DISTRIBUTION WIDTH 14.2 % (12.0-15.0); WHITE BLOOD COUNT 6.9 x10^3/uL (4.8-10.8)
[2020-07-09 04:44] LABS: ALBUMIN 4.4 g/dL (3.2-5.5); ALBUMIN/GLOBULIN RATIO 1.2 (1.0-2.2); BILIRUBIN,TOTAL 0.5 mg/dL (0.2-1.0); CREATININE 0.8 mg/dL (0.4-1.0); PARTIAL THROMBOPLASTIN TIME 29.6 secs (24.9-33.3); TOTAL PROTEIN 8.2 g/dL (6.7-8.2)
[2020-07-09] MEDS ORDERED: IOVERSOL 320 100 ML VIAL IVP ONE ×2 (05:55→07:07)
[2020-07-09] MEDS ORDERED: KETOROLAC 30 MG/ML VIAL IVP STA (07:37)
[2020-07-09 08:32] LABS: BILIRUBIN,URINE NEGATIVE (NEGATIVE); GLUCOSE, URINE (UA) NEGATIVE (NEGATIVE); KETONES,URINE (UA) NEGATIVE (NEGATIVE); LEUKOCYTE ESTERASE, URINE NEGATIVE (NEGATIVE); NITRITE,URINE POSITIVE (NEGATIVE); OCCULT BLOOD,URINE NEGATIVE (NEGATIVE); PH,URINE 6.5 PH (5.0-7.5); PROTEIN,URINE NEGATIVE (NEGATIVE); UROBILINOGEN,URINE 0.2 (NORMAL) E.U./dL (NORMAL)
[2020-07-09 08:33] LABS: CLARITY,URINE HAZY (CLEAR)
--- NOTE | 2020-07-09 08:47 | CT Report ---
PROCEDURE: ANGIO CHEST W/WO INDICATIONS: cp/sob CONTRAST: IV CONTRAST: Optiray 320 ml: 100 PO CONTRAST: *NO PO CONTRAST TECHNIQUE: After the administration of intravenous contrast, 2 mm thick sections acquired from the pulmonary api kristin to the posterior costophrenic angles. 3-dimensional maximum intensity projection (MIP) coronal a nd sagittal reformats were then acquired through the thorax. For radiation dose reduction, the follow ing was used: automated exposure control, adjustment of mA and/or kV according to patient size. COMPARISON: Prior CT angiogram 10/23/2014 reviewed. More recent chest plain films also reviewed. FINDINGS: Image quality: Excellent. Pulmonary arteries: Pulmonary arteries are normal in size, and demonstrate no intraluminal filling d efects to suggest central pulmonary embolism. Lungs and pleura: Lungs are minimally abnormal with linear stranding in each lung base, right greate r than left, mild in overall severity and likely reflecting scarring from old inflammatory events. No te is made of a calcified granuloma at the left lung base just above the diaphragm.. No pleural effu sions or pneumothorax. Central and peripheral airways are patent. Mediastinum: Heart size is normal, without pericardial effusion. No mediastinal or hilar adenopathy . Thoracic aorta is normal in caliber and enhancement. Esophagus is normal in caliber, without hiat al hernia. Bones and chest wall: No suspicious bony lesions. Ribs and thoracic spine appear intact throughout. The thyroid is normal. No axillary or supraclavicular adenopathy. Abdomen: Visualized upper abdominal solid organs appear normal in the early arterial phase of enhanc ement. IMPRESSION: Minimal linear scarring in each lung base, right greater than left, presumably related to prior infla mmatory events in those areas. No acute pneumonia found. Calcified granuloma left lower lobe just abo ve the diaphragm. Note is made of no evidence of pulmonary embolus.. A definite source of new chest p ain and shortness of breath is not found. No evidence of aneurysm or dissection identified. Note: These findings are concordant with the preliminary interpretation previously rendered. Reviewed by: Hoang Bear MD on 07/09/2020 8:46 AM PDT Approved by: Hoang Bear MD on 07/09/2020 8:46 AM PDT Station ID: [id number]
[2020-07-09 08:54] LABS: RBC,URINE 0-5 /HPF (0-5); SQUAMOUS EPITHELIAL CELL,UR FEW Squamous (<= Few)
[2020-07-09 08:55] LABS: AMORPHOUS SEDIMENT,UR Few /LPF; BACTERIA,URINE Few /HPF (None Seen)
[2020-07-09] MEDS ORDERED: NITROFURANTOIN MACRO 100 MG CAPSULE PO STA (09:05)
--- NOTE | 2020-07-09 09:07 | XRAY Report ---
PROCEDURE: Chest 1 View X-Ray INDICATIONS: Chest pain. TECHNIQUE: One view of the chest was acquired. COMPARISON: 05/26/2019 and 03/03/2019 FINDINGS: Surgical changes and devices: Surgical clips at the gastroesophageal junction are stable. Lungs and pleura: No pleural effusions or pneumothorax. Lungs are clear. Mediastinum: Mediastinal contours appear normal. Heart size is normal. Bones and chest wall: No suspicious bony lesions. Overlying soft tissues appear unremarkable. IMPRESSION: No acute cardiopulmonary disease process. Reviewed by: Angelita Groves MD, PhD on 07/09/2020 9:05 AM PDT Approved by: Angelita Groves MD, PhD on 07/09/2020 9:05 AM PDT Station ID: [id number]
--- NOTE | 2020-07-09 09:10 | CT Report ---
PROCEDURE: Abdomen/Pelvis W INDICATIONS: epigastric pain CONTRAST: IV CONTRAST: Optiray 320 ml: 100 PO CONTRAST: *NO PO CONTRAST TECHNIQUE: After the administration of intravenous contrast, 5 mm thick sections acquired from the diaphragms to the symphysis. 5 mm thick coronal and sagittal reformats were acquired. For radiation dose reducti on, the following was used: automated exposure control, adjustment of mA and/or kV according to mikie ent size. COMPARISON: CT abdomen pelvis 10/18/2014. FINDINGS: Image quality: Excellent. ABDOMEN: Lung bases: There is linear atelectasis and scarring in the lung bases. Heart size is at the upper li mits of normal. There is prominent coronary arterial vascular calcification as well as mitral annular calcification. There is a small hiatal hernia. Solid organs: Evaluation of the liver demonstrates no discrete mass. The gallbladder is surgically a bsent. There is mild intrahepatic biliary ductal dilatation. Marked dilatation of the extrahepatic du ct is redemonstrated, measuring up to 2 there is mild dilatation of the pancreatic duct in the head a nd uncinate process, measuring up to approximately 0.4 cm. No peripancreatic fat stranding or fluid c ollections. The spleen is normal in size. There is thickening of the adrenal glands redemonstrated bi laterally. Kidneys demonstrate no hydronephrosis. There are areas of renal cortical thinning bilatera lly compatible sequelae of prior infection, trauma, or infarcts. Bilateral renal cysts are also demon strated. There are bilateral extrarenal pelves. Ureters are nondistended. Peritoneum and bowel: Postsurgical changes are demonstrated consistent with prior partial right sandhya ctomy. There is mild short segment wall thickening of the distal ileum extending to the ileocolic patrizia stomosis with slight segmental upstream dilatation. Bowel loops otherwise demonstrate normal wall thi ckness and caliber. No definite evidence of bowel obstruction more proximally. Colonic diverticulosis is present without acute diverticulitis. No free fluid or air. Nodes and vessels: No retroperitoneal or mesenteric adenopathy by size criteria. Aorta and inferior vena cava are normal in size. There is diffuse atherosclerotic vascular calcification. Miscellaneous: No ventral hernias. There is diffuse subcutaneous calcification bilaterally in the gl uteal regions suggestive of injection granuloma. PELVIS: Genitourinary: Bladder wall thickness is normal. Miscellaneous: No inguinal hernias or adenopathy. Bones: No suspicious bony lesions. No vertebral body compression fractures. IMPRESSION: 1. Postsurgical changes demonstrated status post partial right colectomy with mild short segment wall thickening in the distal ileum extending to the ileocolic anastomosis compatible with a nonspecific enteritis. Mild short segment upstream dilatation suggests an associated mild stricture. 2. Marked fusiform extrahepatic biliary ductal dilatation redemonstrated without a calcified obstruct ing stone or mass. 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 3. Borderline dilatation of the pancreatic duct in the head and uncinate process. No peripancreatic f at stranding or fluid collections are identified to suggest acute pancreatitis on CT. Final interpretation discussed with Dr. Adames on 07/09/20 Reviewed by: Silvestre Cobb MD on 07/09/2020 9:08 AM PDT Approved by: Silvestre Cobb MD on 07/09/2020 9:08 AM PDT Station ID: [id number]
[2020-07-09 09:34] VITALS: BP 162/75
== END 2020-07-09 09:34 | disposition home or self-care (01) ==
LOC: ED 04:07
DX: N39.0 Urinary tract infection, site not specified (principal); R07.9 Chest pain, unspecified; I25.10 Atherosclerotic heart disease of native coronary artery without angina pectoris; I45.10 Unspecified right bundle-branch block; I10 Essential (primary) hypertension; J84.10 Pulmonary fibrosis, unspecified; Z86.73 Personal history of transient ischemic attack (TIA), and cerebral infarction without residual deficits; Z66 Do not resuscitate
CPT/HCPCS: 36415; 71045; 71275; 74177; 80053; 81001; 82550; 83605; 83690; 83880; 84484; 85025; 85610; 85730; 87086; 93005; 96374; 96375; 96376; 99283; 99284; A9270; Q9967; 81003

== ENCOUNTER 2020-09-07 03:20 | Emergency (ER) | payer MEDICARE, BC ==
[2020-09-07] MEDS ORDERED: SODIUM CHLORIDE 0.9% 1,000 ML IV STA (03:35)
[2020-09-07] MEDS ORDERED: ASPIRIN CHEW 81 MG TABLET PO STA (03:35)
[2020-09-07 03:41] LABS: BASOPHILS # (AUTO) 0.1 10^3/uL (0.0-0.1); BASOPHILS % (AUTO) 1.2 %; EOSINOPHILS # (AUTO) 0.7 10^3/uL (0.0-0.7); EOSINOPHILS % (AUTO) 9.1 %; HGB - HEMOGLOBIN 13.8 g/dL (12.0-16.0); LYMPHOCYTES # (AUTO) 3.1 10^3/uL (1.5-3.5); LYMPHOCYTES % (AUTO) 42.2 %; MEAN CORPUSCULAR HEMOGLOBIN 29.9 pg (27.0-31.0); MEAN CORPUSCULAR HGB CONC 32.7 g/dL (32.0-36.0); MEAN CORPUSCULAR VOLUME 91.3 fL (81.0-99.0); MEAN PLATELET VOLUME 9.2 fL (7.9-10.8); MONOCYTES # (AUTO) 0.8 10^3/uL (0.0-1.0); MONOCYTES % (AUTO) 10.5 %; NEUTROPHILS # (AUTO) 2.6 10^3/uL (1.5-6.6); NEUTROPHILS % (AUTO) 36.7 %; PLT - PLATELET COUNT 336 10^3/uL (130-450); RED BLOOD COUNT 4.62 10^6/uL (4.20-5.40); RED CELL DISTRIBUTION WIDTH 14.1 % (12.0-15.0); WHITE BLOOD COUNT 7.2 x10^3/uL (4.8-10.8)
[2020-09-07 03:45] LABS: PT - PROTHROMBIN TIME 11.1 secs (9.9-12.6)
--- NOTE | 2020-09-07 03:48 | ED Physician Documentation ---
PD HPI CHEST PAIN - Stated complaint Stated Complaint: CHEST PX - Chief complaint Chief Complaint: Cardiac - History obtained from History obtained from: Patient - Additional information Additional information: Patient comes emergency department complaining of chest pain just to the right of her sternum that began around 2300. Patient states that sheHad just gone to bed when the pain started, and that she could not get to sleep. Patient's states that when she awoke him, she pointed more to her bellybutton area as being the area of pain. However patient points just to the right of her i nferior sternal area. Patient denies radiation of the pain, shortness of breath, or nausea. She states she has not been sick with anything else. No cough or fever. Patient has been admitted one other time for chest pain and [place] rule out, and her work-up was negative at that time. At that time, she had been given GI medications and nitroglycerin and morphine, and it turned out to be the GI meds that were the most helpful for her symptoms. The patient on discharge had been advised to follow-up with Dr. Meza for a stress test, but patient states she was unaware of this and never did go for her stress test. This was in October 2016. Patient has had a TIA since and has had an echocardiogram, which was fairly unremarkable. A CTA done in June that showed some mild calcification of the patient's coronary arteries. Once again, the patient was advised to follow-up with her primary care physician, but has not done so regarding this. The patient states she is still having some pain but otherwise feels okay. No other complaints at this time. Review of Systems Ten Systems: 10 systems reviewed and negative Constitutional: reports: Reviewed and negative. denies: Fever Eyes: reports: Reviewed and negative Ears: reports: Reviewed and negative Nose: reports: Reviewed and negative Throat: reports: Reviewed and negative Cardiac: reports: Chest pain / pressure Respiratory: reports: Reviewed and negative. denies: Dyspnea, Cough GI: reports: Reviewed and negative. 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 : Incontinence HEENT: None Psych: None Musculoskeletal: None Derm: None - Past Surgical History Past Surgical History: Yes General: Bowel surgery, Hiatal hernia repair, Colonoscopy Ortho: Knee replacement - Present Medications Home Medications: Ambulatory Orders Medication Instructions Recorded Confirmed Multivitamin [Multiple Vitamins] 1 tab PO DAILY 10/24/16 04/23/20 Lactobacillus Acidophilus 1 tab PO DAILY 12/19/19 04/23/20 [Probiotic Acidophilus] Nitrofurantoin Monohyd/M-Cryst 100 mg PO BID #10 capsule 07/09/20 [Macrobid 100 mg Capsule] Aspirin 81 DAILY 09/07/20 HYDROcod/ACETAM 5/325 [[place] 5/325] 1 ea PO Q6H PRN #10 tablet 09/07/20 amLODIPine [Norvasc] 09/07/20 - Allergies Allergies/Adverse Reactions: Allergies Allergy/AdvReac Type Severity Reaction Status Date / Time Sulfa (Sulfonamide Allergy Severe Itching Verified 07/09/20 04:18 Antibiotics) erythromycin base Allergy Intermediate Rash Verified 07/09/20 04:18 [Erythromycin Base] Iodinated Contrast Media Allergy Unknown Verified 07/09/20 04:18 - Social History Does the pt smoke?: No Smoking Status: Never smoker Does the pt drink ETOH?: No Does the pt have substance abuse?: No - Immunizations Immunizations are current?: Yes - POLST Patient has POLST: Yes POLST Status: DNR PD ED PE NORMAL - Vitals Vital signs reviewed: Yes - General General: Alert and oriented X 3, No acute distress, Well developed/nourished - HEENT HEENT: Atraumatic, PERRL, EOMI, Moist mucous membranes - Neck Neck: Supple, no meningeal sign - Cardiac Cardiac: RRR, Strong equal pulses, Other (2 out of 6 systolic murmur) - Respiratory Respiratory: No respiratory distress, Clear bilaterally - Abdomen Abdomen: Soft, Non tender, Non distended - Derm Derm: Normal color, Warm and dry - Extremities Extremities: No deformity, No edema, No calf tenderness / cord - Neuro Neuro: Alert and oriented X 3 - Psych Psych: Normal mood, Normal affect Results - Vitals Vitals: Oxygen O2 Source [With Activity] Room air O2 Source [Without Activity] Room air O2 Source Room air - EKG (time done) 0327 Rate: Rate (enter#) (83) Rhythm: NSR [place]: Normal Intervals: RBBB QRS: Normal Ischemia: Normal ST segments Compare to prior EKG: Unchanged from prior EKG Computer interpretation: Agree with computer - Labs Labs: Laboratory Tests 09/07/20 09/07/20 09/07/20 03:34 03:34 03:34 WBC 7.2 RBC 4.62 Hgb 13.8 Hct 42.2 MCV 91.3 MCH 29.9 MCHC 32.7 RDW 14.1 Plt Count 336 MPV 9.2 Neut # (Auto) 2.6 Lymph # (Auto) 3.1 [place] # (Auto) 0.8 Eos # (Auto) 0.7 Baso # (Auto) 0.1 Absolute Nucleated RBC 0.00 Nucleated RBC % 0.0 PT 11.1 INR 1.0 Sodium 140 Potassium 3.6 Chloride 107 Carbon Dioxide 21 Anion Gap 12.0 BUN 11 Creatinine 0.8 Estimated GFR (MDRD) 69 L Glucose 118 H Calcium 9.4 Total Bilirubin 0.6 AST 23 ALT 20 Alkaline Phosphatase 98 Troponin I High Sens Total Protein 7.4 Albumin 4.2 Globulin 3.2 Albumin/Globulin Ratio 1.3 Lipase 30 09/07/20 09/07/20 03:34 05:16 WBC RBC Hgb Hct MCV MCH MCHC RDW Plt Count MPV Neut # (Auto) Lymph # (Auto) [place] # (Auto) Eos # (Auto) Baso # (Auto) Absolute Nucleated RBC Nucleated RBC % PT INR Sodium Potassium Chloride Carbon Dioxide Anion Gap BUN Creatinine Estimated GFR (MDRD) Glucose Calcium Total Bilirubin AST ALT Alkaline Phosphatase Troponin I High Sens 7.9 7.8 Total Protein Albumin Globulin Albumin/Globulin Ratio Lipase PD MEDICAL DECISION MAKING - ED course Complexity details: reviewed old records, reviewed results, re-evaluated patient, considered differential, d/w patient, d/w family ED course: The patient was extremely well-appearing, and I did review her old records. I discussed with the patient that given her age and the known calcifications in her coronary arteries, we will do a cardiac work-up here in the ED, but I suspect that the work-up will be negative, as patient has very localized pain that corresponds to chest wall tenderness just to the right of her inferior sternum, around the seventh intercostal space. The patient requested something for pain. She stated she had already taken a baby aspirin at home at 2300, so further aspirin was not given in the emergency department. The patient received a couple doses of Dilaudid, which briefly and then she would complain the pain was coming back. However, the patient continued to look very good, smiling and conversing easily. Her work-up was negative. I reiterated to her that she has been actually counseled a couple of times regarding her need for follow-up for potential stress test and that it is very important that she actually does at this time. Her symptoms do not sound typical of cardiac mediated symptoms this time, but given that she is elderly and is known to have coronary artery calcifications, this is an issue she should definitely follow-up on. Patient was agreeable to the plan, as was her . We have discussed the usual indications for return. Departure - Departure Disposition: 01 Home, Self Care Clinical Impression: Chest pain Qualifiers: Chest pain type: unspecified Qualified Code(s): R07.9 - Chest pain, unspecified Condition: Stable Instructions: ED Chest Pain Atypical Unkn Cause Prescriptions: HYDROcod/ACETAM 5/325 [[place] 5/325] 1 ea PO Q6H PRN #10 tablet PRN Reason: Pain Comments: Your labs, including 2 sets of cardiac labs look good. You have been advised twice on discharge to follow-up with your doctor to discuss a stress test in the still has not been done. It is extremely important that you see your doctor to get scheduled for stress test so you can see if there are significant blockages in your coronary arteries, Which could put you at risk for heart attack. At this point in time, there is no evidence of heart attack. Please get rest at home and call to make an appointment with your primary care physician this morning for an appointment to be seen as soon as possible to get a stress test done. Discharge Date/Time: 09/07/20 06:14
[2020-09-07] MEDS ORDERED: KETOROLAC 30 MG/ML VIAL IVP STA (03:51)
[2020-09-07] MEDS ORDERED: HYDROmorphone 1 MG/ML CARPUJECT IVP STA ×2 (03:51→04:55)
[2020-09-07] MEDS ORDERED: GI COCKTAIL 120 ML BOTTLE PO SCH (03:52)
[2020-09-07 03:53] LABS: ALBUMIN 4.2 g/dL (3.2-5.5); ALBUMIN/GLOBULIN RATIO 1.3 (1.0-2.2); BILIRUBIN,TOTAL 0.6 mg/dL (0.2-1.0); CALCIUM 9.4 mg/dL (8.5-10.3); CREATININE 0.8 mg/dL (0.4-1.0); TOTAL PROTEIN 7.4 g/dL (6.7-8.2)
[2020-09-07] MEDS ORDERED: MAG HYDROX/AL HYDROX/SIMETH 30 ML UDC PO STA (03:56)
[2020-09-07] MEDS ORDERED: diphenhydrAMINE ELIXIR 25 MG/10 ML UDC PO PRN (03:56)
[2020-09-07] MEDS ORDERED: LIDOCAINE VISCOUS 2% 15 ML UDC MM STA (03:56)
[2020-09-07 06:14] VITALS: BP 138/77
--- NOTE | 2020-09-07 08:49 | XRAY Report ---
PROCEDURE: Chest 1 View X-Ray INDICATIONS: Chest Pain TECHNIQUE: One view of the chest was acquired. COMPARISON: CT angiogram of the chest 07/09/2020 reviewed. FINDINGS: Surgical changes and devices: Several epigastrium area surgical clips noted at the midline. Lungs and pleura: No pleural effusions or pneumothorax. Lungs are clear. Mediastinum: Mediastinal contours appear normal. Heart size is normal. Bones and chest wall: No suspicious bony lesions. Overlying soft tissues appear unremarkable. IMPRESSION: Normal for age, source of current symptoms is not seen. Reviewed by: Hoang Bear MD on 09/07/2020 8:47 AM PDT Approved by: Hoang Bear MD on 09/07/2020 8:47 AM PDT Station ID: [id number]
== END 2020-09-07 06:14 | disposition home or self-care (01) ==
LOC: ED 03:20
DX: R07.89 Other chest pain (principal); I45.10 Unspecified right bundle-branch block; I25.10 Atherosclerotic heart disease of native coronary artery without angina pectoris; I10 Essential (primary) hypertension; Z79.82 Long term (current) use of aspirin; Z66 Do not resuscitate
CPT/HCPCS: 36415; 71045; 80053; 83690; 84484; 85025; 85610; 93005; 96361; 96374; 96376; 99284; A9270; J1170

== ENCOUNTER 2020-09-14 10:07 | Outpatient (CLI) | payer MEDICARE, BC | END 2020-09-14 10:08 | disposition home or self-care (01) | LOC: DI 10:07 | PROVIDERS: ATTEND Internal Medicine | DX: R07.9 Chest pain, unspecified (principal) | CPT/HCPCS: 93306 ==

== ENCOUNTER 2020-10-05 11:26 | Emergency (ER) | payer MEDICARE, BC ==
[2020-10-05 11:45] VITALS: BP 125/84
== END 2020-10-05 11:55 | disposition left against medical advice (07) ==
LOC: ED 11:26
DX: Z53.21 Procedure and treatment not carried out due to patient leaving prior to being seen by health care provider (principal)

== ENCOUNTER 2021-02-24 11:42 | Outpatient (CLI) | payer MEDICARE, BC ==
[2021-02-24] MEDS ORDERED: REGADENOSON 0.4 MG/5 ML SYRINGE IVP ONE ×2 (15:02→17:04)
--- NOTE | 2021-02-24 16:48 | CARDIAC PROCEDURE NOTE ---
DATE OF SERVICE: 02/24/2021 Physician: Jade Prescott MD, [facility] INDICATION: Dyspnea on exertion. CARDIAC RISK FACTORS: Postmenopausal status. DESCRIPTION OF PROCEDURE: After signing informed consent, the patient underwent a Lexiscan pharmaceutical stress test with nuclear myocardial perfusion imaging. RESTING HEART RATE: 73. PEAK HEART RATE: 98. RESTING BLOOD PRESSURE: 185/91. PEAK BLOOD PRESSURE: 154/93 (vasodilation occurs with Lexiscan). Lexiscan was infused per protocol. The patient had brief shortness of breath and flushing, which resolved in less than 30 seconds. She had no chest pain or other side effects. Oxygen saturation was 95-97% on room air throughout the test. RESTING EKG: Normal sinus rhythm, right bundle branch block, LVH with strain pattern, U waves present (consider electrolyte abnormality). EKG AT PEAK: Similar ST and T-wave abnormalities present as at baseline, therefore unable to make a comparison. SUMMARY: 1. Abnormal resting EKG. 2. Cannot compare ST segments or T waves with the baseline EKG abnormalities already present. 3. Nuclear images were reported separately and showed: A fixed perfusion defect of the infero-lateral wall, consistent with old CO, no reversible perfusion defects. LVEF is preserved at >70%. IMPRESSION: 1. Abnormal stress test. RECOMMENDATIONS: 1. Start daily aspirin and B-davion. 2. Cardiology referral. cc: Izaiah Meza MD TD: 02/24/2021 16:46 [facility]
--- NOTE | 2021-02-24 19:23 | Nuclear Medicine Report ---
PROCEDURE: Rest and exercise pharmacological stress perfusion SPECT with gated imaging and ejection fraction INDICATIONS: LACEY, CHEST PAIN RADIOPHARMACEUTICAL: 11.1 mCi Tc-99m Myoview IV at rest and 40.9 mCi Tc-99m Myoview IV at peak exerc ise. [id number] was performed. TECHNIQUE: Radiopharmaceutical was injected at peak stress test, and also at rest. SPECT images wer e obtained. SPECT myocardial perfusion images were displayed in short axis, horizontal long axis, an d vertical long axis views. Gated images were reviewed using AutoQUANT software. COMPARISON: None available. FINDINGS: Raw data: There is good myocardial labeling by radiotracer. No significant motion artifacts. Lung- to-heart ratio is 0.27 (normal is less than 0.46 for tetrafosmin tracer). Left ventricle function: Gated images demonstrate normal left ventricle wall thickening. No segment al wall motion abnormality. No transient ischemic dilation; TID is 1.09 (normal less than 1.30). Th e left ventricle resting end-diastolic volume is normal. Left ventricle stress ejection fraction is >70%; normal values are above 45%. Myocardial perfusion: There is a moderate sized, moderately severe, fixed perfusion defect in the in ferior lateral, consistent with myocardial infarct. There is no reversible perfusion defect to sugges t myocardial ischemia IMPRESSION: 1. Abnormal myocardial perfusion images. There is a moderate sized, moderately severe, fixed perfusio n defect in the inferior lateral wall consistent with myocardial infarct. 2. Reversible perfusion defect to suggest myocardial ischemia. 3. Normal left ventricular volume and systolic function. PQRS ATTESTATIONS: Measure 322 - Is this imaging test primarily performed on a low-risk surgery patient for preoperative evaluation within 30 days preceding their low-risk non-cardiac surgery? Low-risk surgery is defined as cardiac or myocardial infarction less than 1%, including (but not limited to) endoscopic pr ocedures, superficial procedures, cataract surgery, and excisional breast surgery: Answer: No Measure 323 - Is this imaging test performed primarily for the monitoring of an asymptomatic patient who had percutaneous coronary intervention on the visit date or within 2 years of the visit date? An swer: No Measure 324 - Is this imaging test performed primarily for the initial detection and risk assessment on an asymptomatic, low coronary heart disease patient? Low CHD risk definition = clinicians should consider the maximum number of available patient factors used to estimate risk based on [place] (A TP III criteria), typically age, gender, diabetes, smoking status, and use of blood pressure medicati on, and integrate age appropriate estimates for missing elements, such as LDL or standard blood press ure. Answer: No Reviewed by: Chandler Sweeney MD on 02/24/2021 7:22 PM PDT Approved by: Chandler Sweeney MD on 02/24/2021 7:22 PM PDT Station ID: [id number]
== END 2021-02-24 11:43 | disposition home or self-care (01) ==
LOC: DI 11:42
PROVIDERS: ATTEND Internal Medicine
DX: R94.39 Abnormal result of other cardiovascular function study (principal); R94.31 Abnormal electrocardiogram [ECG] [EKG]; Z78.0 Asymptomatic menopausal state
CPT/HCPCS: 78452; 93017; A9500; J2785

== ENCOUNTER 2021-09-01 15:39 | Outpatient (CLI) | payer MEDICARE, BC | END 2021-09-01 15:40 | disposition home or self-care (01) | LOC: COV 15:39 | PROVIDERS: ATTEND Family Medicine | DX: R05.9 Cough, unspecified (principal); R06.02 Shortness of breath; M79.10 Myalgia, unspecified site; R53.83 Other fatigue; R68.83 Chills (without fever); R07.0 Pain in throat; R43.8 Other disturbances of smell and taste; R09.81 Nasal congestion; Z20.822 Contact with and (suspected) exposure to COVID-19 ==

== ENCOUNTER 2021-11-21 12:17 | Outpatient (CLI) | payer MEDICARE, BC | END 2021-11-21 12:18 | disposition critical access hospital (66) | LOC: EMS 12:17 | DX: R07.9 Chest pain, unspecified (principal); M54.9 Dorsalgia, unspecified | CPT/HCPCS: A0425; A0427 ==

== ENCOUNTER 2021-11-21 12:26 | Emergency (ER) | payer MEDICARE, BC ==
[2021-11-21] MEDS ORDERED: HYDROmorphone 1 MG/ML CARPUJECT IVP STA (12:46)
--- NOTE | 2021-11-21 12:47 | ED Physician Documentation ---
PD HPI CHEST PAIN - Stated complaint Stated Complaint: CP/BACK PX - Chief complaint Chief Complaint: Cardiac - History obtained from History obtained from: Patient, EMS - Additional information Additional information: Woman with history of several strokes and also [place] based on fixed perfusion defect on the stress test presents with sudden onset back pain starting at 10 AM while at rest watching TV. States she has never had this before. It is quite severe. It is worse with moving or bending, in fact refuses to have her back examined on initial evaluation prior to pain medication. Chest pain was reported to me by the paramedics but she denies it. Had aspirin prior to arrival which did not change anything. Pain has not moved since it started and is not described as ripping or tearing, simply just sharp. She is not short of breath with it. Review of the chart shows that she has a listed allergy to iodine contrast media but has had CT angio study several times in the past without obvious issue. She also states she is allergic to an unknown pain medication but has received Dilaudid and morphine in the past without issue. 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 HEENT: None Psych: None Musculoskeletal: None Derm: None - Past Surgical History Past Surgical History: Yes General: Bowel surgery, Hiatal hernia repair, Colonoscopy Ortho: Knee replacement - Present Medications Home Medications: Ambulatory Orders Medication Instructions Recorded Confirmed Multivitamin [Multiple Vitamins] 1 tab PO DAILY 10/24/16 04/23/20 Lactobacillus Acidophilus 1 tab PO DAILY 12/19/19 04/23/20 [Probiotic Acidophilus] Nitrofurantoin Monohyd/M-Cryst 100 mg PO BID #10 capsule 07/09/20 [Macrobid 100 mg Capsule] Aspirin 81 DAILY 09/07/20 HYDROcod/ACETAM 5/325 [[place] 5/325] 1 ea PO Q6H PRN #10 tablet 09/07/20 amLODIPine [Norvasc] 09/07/20 - Allergies Allergies/Adverse Reactions: Allergies Allergy/AdvReac Type Severity Reaction Status Date / Time Sulfa (Sulfonamide Allergy Severe Itching Verified 11/21/21 14:07 Antibiotics) erythromycin base Allergy Intermediate Rash Verified 11/21/21 14:07 [Erythromycin Base] - Social History Does the pt smoke?: No Smoking Status: Never smoker Does the pt drink ETOH?: No Does the pt have substance abuse?: No - Immunizations Immunizations are current?: Yes - POLST Patient has POLST: Yes POLST Status: DNR PD ED PE NORMAL - Vitals Vital signs reviewed: Yes - General General: Alert and oriented X 3, Other (Appears comfortable at rest but refuses to move for back examination.) - HEENT HEENT: PERRL, EOMI - Neck Neck: Supple, no meningeal sign, No bony TTP, No bruit - Cardiac Cardiac: RRR, No murmur - Respiratory Respiratory: No respiratory distress, Clear bilaterally - Abdomen Abdomen: Soft, Non tender - Derm Derm: Normal color, Warm and dry - Extremities Extremities: No edema, No calf tenderness / cord, Other (Equal radial pulses, warm and well-perfused feet.) - Neuro Neuro: Alert and oriented X 3, Normal speech Eye Opening: Spontaneous Motor: Obeys Commands Verbal: Oriented GCS Score: 15 Results - Vitals Vitals: Vital Signs - 24 hr 11/21/21 11/21/21 11/21/21 12:30 13:00 13:30 Temperature 36.1 C L Heart Rate 88 88 89 Respiratory 16 14 18 Rate Blood Pressure 188/113 H 199/120 H 121/81 H O2 Saturation 99 91 L 95 11/21/21 11/21/21 11/21/21 14:00 14:30 15:00 Temperature Heart Rate 89 86 86 Respiratory 17 15 16 Rate Blood Pressure 116/78 144/88 H 128/80 O2 Saturation 99 97 99 11/21/21 11/21/21 11/21/21 15:30 16:00 16:32 Temperature Heart Rate 84 72 66 Respiratory 13 14 15 Rate Blood Pressure 121/101 H 104/67 110/71 O2 Saturation 95 96 96 11/21/21 11/21/21 11/21/21 17:00 17:30 18:00 Temperature Heart Rate 65 63 63 Respiratory 16 16 16 Rate Blood Pressure 108/56 L 114/79 103/63 O2 Saturation 97 94 96 Oxygen O2 Source [] Room air O2 Source [] Room air O2 Source Room air - EKG (time done) 1453 Rate: Rate (enter#) (85) Rhythm: NSR (w pac) [place]: Normal Intervals: RBBB, Other (LAFB) QRS: LVH Ischemia: Normal ST segments - Labs Labs: Laboratory Tests 11/21/21 11/21/21 11/21/21 13:07 13:07 13:07 WBC 13.0 H RBC 4.69 Hgb 14.1 Hct 42.7 MCV 91.0 MCH 30.1 MCHC 33.0 RDW 12.4 Plt Count 376 MPV 9.1 Neut # (Auto) 10.8 H Lymph # (Auto) 1.3 L [place] # (Auto) 0.6 Eos # (Auto) 0.1 Baso # (Auto) 0.1 Absolute Nucleated RBC 0.00 Nucleated RBC % 0.0 Sodium 138 Potassium 3.7 Chloride 105 Carbon Dioxide 22 Anion Gap 11.0 BUN 14 Creatinine 0.7 Estimated GFR (MDRD) 80 L Glucose 145 H Calcium 9.4 Troponin I High Sens 12.0 Nasal Adenovirus (PCR) Nasal B. parapertussis DNA (PCR) Nasal Coronavir 229E PCR Nasal Coronavir HKU1 PCR Nasal Coronavir NL63 PCR Nasal Coronavir OC43 PCR Nasal Enterovir/Rhinovir PCR Nasal Influenza B PCR Nasal Influenza A PCR Nasal Parainfluen 1 PCR Nasal Parainfluen 2 PCR Nasal Parainfluen 3 PCR Nasal Parainfluen 4 PCR Nasal RSV (PCR) Nasal B.pertussis DNA PCR Nasal C.pneumoniae (PCR) [place] Human Metapneumo PCR Nasal M.pneumoniae (PCR) Nasal SARS-CoV-2 (PCR) Blood Type Antibody Screen 11/21/21 11/21/21 15:00 15:19 WBC RBC Hgb Hct MCV MCH MCHC RDW Plt Count MPV Neut # (Auto) Lymph # (Auto) [place] # (Auto) Eos # (Auto) Baso # (Auto) Absolute Nucleated RBC Nucleated RBC % Sodium Potassium Chloride Carbon Dioxide Anion Gap BUN Creatinine Estimated GFR (MDRD) Glucose Calcium Troponin I High Sens Nasal Adenovirus (PCR) NOT DETECTED Nasal B. parapertussis DNA (PCR) NOT DETECTED Nasal Coronavir 229E PCR NOT DETECTED Nasal Coronavir HKU1 PCR NOT DETECTED Nasal Coronavir NL63 PCR NOT DETECTED Nasal Coronavir OC43 PCR NOT DETECTED Nasal Enterovir/Rhinovir PCR NOT DETECTED Nasal Influenza B PCR NOT DETECTED Nasal Influenza A PCR NOT DETECTED Nasal Parainfluen 1 PCR NOT DETECTED Nasal Parainfluen 2 PCR NOT DETECTED Nasal Parainfluen 3 PCR NOT DETECTED Nasal Parainfluen 4 PCR NOT DETECTED Nasal RSV (PCR) NOT DETECTED Nasal B.pertussis DNA PCR NOT DETECTED Nasal C.pneumoniae (PCR) NOT DETECTED [place] Human Metapneumo PCR NOT DETECTED Nasal M.pneumoniae (PCR) NOT DETECTED Nasal SARS-CoV-2 (PCR) NOT DETECTED Blood Type A POSITIVE Antibody Screen NEGATIVE - Rads (name of study) CTA Chest Radiology: EMP read contemporaneously (CAD. New periaortic hematoma surrounding the arch with a maximal thickness of about 1.0 cm. Precontrast images demonstrate this is mildly hyperdense blood compared to intraluminal blood. Postcontrast, a discrete site of extravasation is not identified.) PD MEDICAL DECISION MAKING - ED course ED course: This is a frank 81-year-old woman who presents with atraumatic back pain starting at 10 AM while at rest. While there certainly is a motion related component to it suggestive of a musculoskeletal cause, after some pain medication we were unable to recreate the pain with palpation of any area of the back. Angiography of the chest was done to evaluate for aortic dissection as that is certainly the most severe diagnosis that it could be especially associated with her elevated blood pressures. On my view of the images I felt that there was no dissection, but there was definitely some abnormality of the mediastinum that was new since a comparison study done in June 2020. I walked over and discussed the case with our radiologist in house, Dr. 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 There is no blush so the active bleeding has ceased on its own. I went back to the bedside and the patient is feeling much better. We will place a second IV and control her blood pressure with a clevidipine drip, and calls were started for transfer to a tertiary facility capable of cardiothoracic intervention. With Dr. Hoang Larkin, cardiothoracic surgery at [facility]. He accepts the patient but wants to discuss the case with his radiologist. Recommends hanging and esmolol drip which is done. Dr. Larkin looked at the images with his radiologist and called me back. Accepts her in transfer pending bed availability. Current surgical plan is to watch her in the ICU with blood pressure and hemodynamic management with potentially a repeat CT. Difficult delay to bed availability at [facility] so we also reached out to [facility] and I spoke with Dr. Manny Hernandez there who also graciously accepts the patient. Subsequently Dr. Larkin called me back again noting that it did not look like they would have any beds and recommended the following plan in the interim. Continue with a goal heart rate around 60 and goal systolic blood pressure of less than 120. If she would still be here in 48 hours to repeat the CAT scan at that time and try to transition her to oral medications. She would need a repeat CT in 1 month. We were notified around 6:10 PM that a bed had become at [facility] and she was formally accepted there. - Critical Care Time(min): 60 Time Includes: Direct patient care, Review records, Reassess patient, Document care, Coordinate care, Medical consult, Family consult for tx dec Data interpretation: Labs, Pulse ox Procedures included in critical care time: Peripheral IV Procedures excluded from critical care time: EKG Departure - Departure Disposition: 02 Transfer Acute Care Hosp Clinical Impression: Aortic rupture Condition: Critical
[2021-11-21 13:14] LABS: BASOPHILS # (AUTO) 0.1 10^3/uL (0.0-0.1); BASOPHILS % (AUTO) 0.5 %; EOSINOPHILS # (AUTO) 0.1 10^3/uL (0.0-0.7); HCT - HEMATOCRIT 42.7 % (37.0-47.0); HGB - HEMOGLOBIN 14.1 g/dL (12.0-16.0); LYMPHOCYTES # (AUTO) 1.3 10^3/uL (1.5-3.5); MEAN CORPUSCULAR HEMOGLOBIN 30.1 pg (27.0-31.0); MEAN PLATELET VOLUME 9.1 fL (7.9-10.8); MONOCYTES # (AUTO) 0.6 10^3/uL (0.0-1.0); MONOCYTES % (AUTO) 4.5 %; NEUTROPHILS # (AUTO) 10.8 10^3/uL (1.5-6.6); NEUTROPHILS % (AUTO) 83.6 %; PLT - PLATELET COUNT 376 10^3/uL (130-450); RED BLOOD COUNT 4.69 10^6/uL (4.20-5.40); RED CELL DISTRIBUTION WIDTH 12.4 % (12.0-15.0)
[2021-11-21 13:27] LABS: CALCIUM 9.4 mg/dL (8.5-10.3); CREATININE 0.7 mg/dL (0.4-1.0); POTASSIUM 3.7 mmol/L (3.5-5.0)
[2021-11-21] MEDS ORDERED: CLEVIDIPINE BUTYRATE 25 MG/50 ML BOTTLE IV SCH (15:00)
--- NOTE | 2021-11-21 15:37 | CT Report ---
PROCEDURE: ANGIO CHEST W/WO INDICATIONS: back/chest pain, aorta protocol CONTRAST: IV CONTRAST: Optiray 320 ml: 80 PO CONTRAST: *NO PO CONTRAST TECHNIQUE: Precontrast images through the chest. After the administration of intravenous contrast, 2 mm axial im ages were acquired from the pulmonary apices to the posterior costophrenic angles during the arterial phase. In addition, 1 mm lung kernel and 5 mm soft tissue kernel reconstructions were performed. 3-d imensional coronal oblique maximum intensity projection (MIP) reformats, 8 mm axial MIP, and 5 mm cor onal and sagittal MPR reformats were then performed through the thorax. For radiation dose reduction, the following was used: automated exposure control, adjustment of mA and/or kV according to patient size. COMPARISON: 07/09/2020 FINDINGS: Image quality: Excellent. Aorta: There is a new periaortic hematoma surrounding the arch with a maximal thickness of about 1.0 cm. Precontrast images demonstrate this is mildly hyperdense blood compared to intraluminal blood. Po stcontrast, a discrete site of extravasation is not identified. There is trace fat stranding in the p revascular mediastinal fat and into the anterior mediastinum. The ascending aorta is normal caliber m easuring 3.6 cm in AP diameter at its widest. The dissection flap is not identified. There is mild sc attered atherosclerotic calcification. No visible ulcer. Pulmonary arteries: Pulmonary arteries are normal in size, and demonstrate no intraluminal filling de fects to suggest central pulmonary embolism. Lungs and pleura: Trace left apical pleural effusion/hemothorax. No significant dependent effusion. Trace thickening at the posterior costophrenic sulcus. Septal thickening at both lung bases. No dense consolidations. No pneumothorax. Trace mucous in the distal trachea. Central and peripheral airways are otherwise patent. Mediastinum: Heart size is normal. Trace pericardial fluid, too small to accurately assess density. There is heavy coronary artery calcification of 3 vessels. No mediastinal or hilar adenopathy. Thora cic aorta is normal in caliber and enhancement. Esophagus is normal in caliber, without hiatal herni a. Bones and chest wall: No suspicious bony lesions. Ribs and thoracic spine appear intact throughout. No axillary or supraclavicular adenopathy. The thyroid is normal in size and there are no incident al findings. Abdomen: Significant common duct biliary with changes of cholecystectomy. Calcification of the splen ic artery. Upper abdominal organs are otherwise normal. IMPRESSION: 1. Acute periaortic hematoma surrounding the arch with small apical capping. No evidence of aortic di ssection or active extravasation. 2. Heavy coronary artery calcification. 3. Discussed with Dr. Tolentino in the emergency room at 1440 hours. Reviewed by: Kristen Frye MD on 11/21/2021 3:36 PM PST Approved by: Kristen Frye MD on 11/21/2021 3:36 PM PST Station ID: [id number]
[2021-11-21] MEDS ORDERED: ESMOLOL 2.5 GM/250 ML BAG IV SCH (16:00)
[2021-11-21 16:03] LABS: B. PARAPERTUSSIS- RESP PCR PAN NOT DETECTED; B. PERTUSSIS- RESP PCR PANEL NOT DETECTED; C. PNEUMONIAE- RESP PCR PANEL NOT DETECTED; CORONAVIRUS 229E-RESP PCR NOT DETECTED; CORONAVIRUS HKU1-RESP PCR NOT DETECTED; CORONAVIRUS NL63-RESP PCR NOT DETECTED; CORONAVIRUS OC43-RESP PCR NOT DETECTED; HUMAN METAPNEUMOVIRUS NOT DETECTED; INFLUENZA A- RESP PCR PANEL NOT DETECTED; INFLUENZA B - RESP PCR PANEL NOT DETECTED; M. PNEUMONIAE- RESP PCR PANEL NOT DETECTED; PARAINFLUENZA VIRUS 1 NOT DETECTED; PARAINFLUENZA VIRUS 2 NOT DETECTED; PARAINFLUENZA VIRUS 3 NOT DETECTED; PARAINFLUENZA VIRUS 4 NOT DETECTED; RHINOVIRUS/ENTEROVIRUS NOT DETECTED; RSV- RESP PCR PANEL NOT DETECTED; SARS-CoV-2 -RESP PCR PANEL NOT DETECTED
[2021-11-21] MEDS ORDERED: iohexoL-300 100 ML VIAL IVP ONE (16:53)
[2021-11-21 18:38] VITALS: BP 127/82
== END 2021-11-21 19:13 | disposition short-term general hospital (02) ==
LOC: EDUNIT# → ED 12:26
DX: I71.1 Thoracic aortic aneurysm, ruptured (principal); I10 Essential (primary) hypertension; Z20.822 Contact with and (suspected) exposure to COVID-19
CPT/HCPCS: 36415; 71275; 80048; 84484; 85025; 86850; 86900; 86901; 87631; 93005; 96365; 96375; 99291; C9248; J1170; Q9967; 0202U

== ENCOUNTER 2021-12-07 12:32 | Outpatient (CLI) | payer MEDICARE, BC ==
[2021-12-07] MEDS ORDERED: iohexoL-300 100 ML VIAL ONE (12:48)
--- NOTE | 2021-12-07 14:35 | CT Report ---
PROCEDURE: ANGIO ABDOMEN/PELVIS W INDICATIONS: INTRAMURAL HEMATOMA OF THORACIC AORTA,DISSECTION CONTRAST: IV CONTRAST: Isovue 300 ml: 100 PO CONTRAST: *NO PO CONTRAST TECHNIQUE: After the administration of intravenous contrast, 2 and 5 mm sections acquired from the diaphragm to the iliac crests. 3-dimensional maximum intensity projection (MIP) coronal and sagittal reformats, a nd/or 3-dimensional volume rendering reformatting was then performed. For radiation dose reduction, the following was used: automated exposure control, adjustment of mA and/or kV according to patient size. COMPARISON: CT dated 07/09/2020 FINDINGS: Image quality: Excellent. Extravascular tissues: No change in mild bibasilar scarring. Calcification of the coronary vasculatur e is present. Heart size is enlarged. Liver and spleen are normal in size and enhancement. Gallbladd er is surgically absent no change in intrahepatic and extrahepatic biliary ductal dilatation. Pancrea s enhances normally. No change in pancreatic ductal dilatation. No adrenal nodules. Kidneys are nor mal in size and enhancement, without hydronephrosis. Non-opacified bowel loops demonstrate normal wa ll thickness and caliber. No free fluid or air. No retroperitoneal or mesenteric adenopathy. No ve ntral hernias. Small amount of gas within the urinary bladder. No suspicious bony abnormalities. No vertebral body compression fractures. Calcifications within the subcutaneous fat of the bilateral gl uteal regions in size, as before. Abdominal aorta: Mild diffuse plaque, causing mild diffuse stenosis is present. There is mild ectasi a of the infrarenal abdominal aorta measuring 25 mm, as before. Mesenteric arteries: Mild calcific origin stenosis of the celiac and superior mesenteric arteries. I nferior mesenteric artery demonstrates a mild calcific origin stenosis. Renal arteries: Single right renal artery is present which is patent. There are 2 left renal arterie s, the superior which is dominant, and demonstrates a mild calcific origin stenosis, the inferior whi ch is nondominant, and patent. IMPRESSION: 1. No change in infrarenal aortic ectasia. 2. No change in biliary and pancreatic ductal dilatation. 3. Cardiomegaly. Coronary artery disease. 4. Small amount of gas within the urinary bladder, suggestive of recent catheterization. Clinical cor relation recommended. If there is no history of recent catheterization, consider enterovesical fistul a. Reviewed by: Awilda Chase MD on 12/07/2021 2:34 PM PST Approved by: Awilda Chase MD on 12/07/2021 2:34 PM PST Station ID: [id number]
[2021-12-07] MEDS: iohexoL-300 100 ML VIAL IVP ONE (15:04)
--- NOTE | 2021-12-07 15:59 | CT Report ---
PROCEDURE: ANGIO CHEST W/WO INDICATIONS: INTRAMURAL HEMATOMA OF THORACIC AORTA,DISSECTION CONTRAST: IV CONTRAST: Isovue 300 ml: 100 PO CONTRAST: *NO PO CONTRAST TECHNIQUE: After the administration of intravenous contrast, 2 mm axial images were acquired from the pulmonary apices to the posterior costophrenic angles during the arterial phase. In addition, 1 mm lung kernel and 5 mm soft tissue kernel reconstructions were performed. 3-dimensional coronal oblique maximum int ensity projection (MIP) reformats, 8 mm axial MIP, and 5 mm coronal and sagittal MPR reformats were t hen performed through the thorax. For radiation dose reduction, the following was used: automated exp osure control, adjustment of mA and/or kV according to patient size. COMPARISON: CTA chest dated 11/21/2021 FINDINGS: Image quality: Excellent. Aorta, its attachments, and surrounding tissues: The previous periaortic mediastinal hematoma has sig nificantly improved since the previous study. Transverse diameter of. Luminal thickening at the level of the transverse arch is decreased from approximately 9 mm in thickness to 4 mm in thickness. Refer ence previous image 25/6 and current image 23/2. No dissection is identified. No aneurysm. Ascending aorta measures 3.5 cm in diameter. Bovine arch anatomy. Great vessel origins are widely patent withou t aneurysm. SMA and celiac are widely patent. Adrenals are not imaged. Pulmonary arteries: Pulmonary arteries are normal in size, and demonstrate no intraluminal filling d efects to suggest central pulmonary embolism. Lungs and pleura: Lungs are clear. No pleural effusions or pneumothorax. Central and peripheral ai rways are patent. Mediastinum: Heart size is normal, without pericardial effusion. Coronary artery calcifications. No mediastinal or hilar adenopathy. Thoracic aorta is normal in caliber and enhancement. Esophagus is normal in caliber, without hiatal hernia. Bones and chest wall: No suspicious bony lesions. Ribs and thoracic spine appear intact throughout. No axillary or supraclavicular adenopathy. The thyroid is normal in size and there are no incident al findings. Abdomen: Visualized upper abdominal solid organs appear normal in the early arterial phase of enhanc ement. IMPRESSION: 1. Significant interval improvement in the appearance of the aorta and periaortic tissues. Near compl ete resolution of mediastinal hematoma. Significant interval decrease in thickening surrounding the a ortic lumen. No aneurysm or dissection. 2. Coronary artery disease. CLINICAL RECOMMENDATION STATEMENTS: In patients <35 years with an ITN detected on CT, MRI, or extrathyroidal ultrasound, the Committee re commends further evaluation with dedicated thyroid ultrasound if the nodule is "e1 cm and has no susp icious imaging features, and if the patient has normal life expectancy. In patients "e35 years with an ITN detected on CT, MRI, or extrathyroidal ultrasound, the Committee r ecommends further evaluation with dedicated thyroid ultrasound if the nodule is "e1.5 cm and has no s uspicious imaging features, and if the patient has normal life expectancy. (ACR, 2014) Reviewed by: Wilmer Hammond MD on 12/07/2021 3:58 PM PST Approved by: Wilmer Hammond MD on 12/07/2021 3:58 PM PST Station ID: [id number]
== END 2021-12-07 12:33 | disposition home or self-care (01) ==
LOC: DI 12:32
PROVIDERS: ATTEND Thoracic Surgery (Cardiothoracic Vascular Surgery)
DX: S27.89 Injury of other specified intrathoracic organs (principal); I25.10 Atherosclerotic heart disease of native coronary artery without angina pectoris; I77.811 Abdominal aortic ectasia; K83.8 Other specified diseases of biliary tract; K86.89 Other specified diseases of pancreas; I51.7 Cardiomegaly; R93.41 Abnormal radiologic findings on diagnostic imaging of renal pelvis, ureter, or bladder
CPT/HCPCS: 71275; 74174; Q9967

== ENCOUNTER 2022-05-27 06:13 | Outpatient (CLI) | payer MEDICARE, BC | END 2022-05-27 06:14 | disposition critical access hospital (66) | LOC: EMS 06:13 | DX: Z74.2 Need for assistance at home and no other household member able to render care (principal) | CPT/HCPCS: A0425; A0429 ==

== ENCOUNTER 2022-05-27 14:33 | Outpatient (CLI) | payer MEDICARE, BC | END 2022-05-27 14:34 | disposition home or self-care (01) | LOC: EMS 14:33 | PROVIDERS: ATTEND Emergency Medicine | DX: Z74.01 Bed confinement status (principal); S72.402D Unspecified fracture of lower end of left femur, subsequent encounter for closed fracture with routine healing | CPT/HCPCS: A0425; A0428 ==

== ENCOUNTER 2022-07-18 08:00 | Outpatient (CLI) | payer MEDICARE, BC ==
--- NOTE | 2022-07-18 20:20 | XRAY Report ---
PROCEDURE: Femur LT INDICATIONS: FEMUR FX TECHNIQUE: 2 views of the femur were acquired. COMPARISON: Left femur radiographs 06/19/2022. FINDINGS: Bones: Prior left knee arthroplasty. Redemonstrated oblique minimally displaced fracture of the dista l femoral diaphysis, superior to the femoral component of the arthroplasty. Alignment of the fracture is not significantly changed. There is possible minimal adjacent bony callus. Soft tissues: Pronounced soft tissue calcification predominantly about the lateral hip and upper thig h, similar to before. Vascular calcifications are present. IMPRESSION: Similar alignment of the minimally displaced distal femur diaphysis fracture. Reviewed by: Dieter Franks MD on 07/18/2022 8:19 PM PDT Approved by: Dieter Franks MD on 07/18/2022 8:19 PM PDT Station ID: [id number]
--- NOTE | 2022-07-19 08:30 | XRAY Report ---
PROCEDURE: Knee 4 View LT INDICATIONS: FEMUR FX TECHNIQUE: 3 views of the left knee(s) were acquired. COMPARISON: Femur radiographs same day, knee radiographs 05/26/2022. FINDINGS: Bones: Prior left knee arthroplasty. Redemonstrated oblique minimally displaced fracture of the dist al femoral diaphysis, superior to the femoral component of the arthroplasty. Alignment of the fractur e is not significantly changed. There is possible minimal adjacent bony callus. Soft tissues: No joint effusion. Vascular calcifications are present. IMPRESSION: Similar alignment of the minimally displaced distal femur diaphysis periprosthetic fracture. Reviewed by: Dieter Franks MD on 07/19/2022 8:28 AM PDT Approved by: Dieter Franks MD on 07/19/2022 8:28 AM PDT Station ID: [id number]
== END 2022-07-18 23:59 | disposition home or self-care (01) ==
LOC: DI.WOS 08:00
PROVIDERS: ATTEND Orthopaedic Surgery
DX: M97.12XD Periprosthetic fracture around internal prosthetic left knee joint, subsequent encounter (principal)

== ENCOUNTER 2022-07-18 16:30 | Emergency (ER) | payer MEDICARE, BC ==
--- OUTSIDE RECORDS SUMMARY | 2022-07-18 16:37 | EXTERNAL MEDICAL SUMMARY RPT | Continuity of Care Document ---
:1940 Author Organization [facility] Address [address] [id number] Phone Care Team Providers Name Role Phone Unavailable Unavailable Unavailable Todd Judge Unavailable Unavailable Gilbert Patient Registrar Unavailable Unavailable Allergies No information. Encounters No information. Functional Status No information. Immunizations No information. Medications date description facility [id number]+0000 metoprolol succinate All 55686243781382+0000 metoprolol succinate All 21237626489843+0000 metoprolol succinate All 43515492200650+0000 oxycodone-acetaminophen All 66864123443897+0000 oxycodone-acetaminophen All 62430789321615+0000 oxycodone-acetaminophen All 35913920573848+0000 hydralazine All 27324807962239+0000 hydralazine All 81701759469246+0000 oxycodone-acetaminophen All 19691360156503+0000 oxycodone-acetaminophen All 81497753601022+0000 oxycodone-acetaminophen All 41965785801102+0000 oxycodone-acetaminophen All 91627148593101+0000 oxycodone-acetaminophen All 93326718683011+0000 amlodipine All 13980509455157+0000 amlodipine All 29719264843303+0000 amlodipine All 28604585292436+0000 amlodipine All 36650306424419+0000 amlodipine All 27384039635294+0000 gabapentin All 90444805624875+0000 gabapentin All 71805197446497+0000 gabapentin All 70146930964179+0000 metoprolol succinate All 80914969022134+0000 metoprolol succinate All 61961867223756+0000 amlodipine All 04322057114968+0000 amlodipine All 80395506552484+0000 losartan All 88463103475114+0000 losartan All 77599890656063+0000 hydralazine All 53414609941999+0000 hydralazine All 40113068486370+0000 atorvastatin All 20733557546596+0000 atorvastatin All 91890579455091+0000 gabapentin All 12756241760408+0000 gabapentin All 32301977975961+0000 atorvastatin All 56580844143271+0000 atorvastatin All 71472606550745+0000 hydralazine All 84495390040919+0000 hydralazine All 95470805393852+0000 hydralazine All 73673538669131+0000 losartan All 85643579281360+0000 losartan All 10228427054773+0000 amlodipine All 07292626835746+0000 amlodipine All 19434844420079+0000 amlodipine All 53141005534532+0000 gabapentin All 49503125127990+0000 gabapentin All 37911558420294+0000 gabapentin All 43010687341920+0000 atorvastatin All 27458519993744+0000 atorvastatin All 54487805324032+0000 atorvastatin All 56120949507622+0000 atorvastatin All 94719583932140+0000 atorvastatin All 92456901179262+0000 atorvastatin All 77643434315407+0000 oxycodone-acetaminophen All 49973833817367+0000 oxycodone-acetaminophen All 11872797644139+0000 losartan All 25074623849247+0000 losartan All 33398913015102+0000 losartan All 16707454125094+0000 metoprolol succinate All 39927683210939+0000 metoprolol succinate All 76474186131398+0000 gabapentin All 95635064900358+0000 gabapentin All 17360874877946+0000 metoprolol succinate All 23696699914738+0000 metoprolol succinate All 99147293475343+0000 metoprolol succinate All 87799101828753+0000 hydralazine All 28406965206967+0000 hydralazine All 61235483711972+0000 hydralazine All 45306264119964+0000 losartan All 07330211254367+0000 losartan All 26370709914147+0000 losartan All Problems No information. Procedures date description facility [id number]+0000 Visit Code Hold All 16693745975662+0000 Visit Code Hold All 73965078967958+0000 Visit Code Hold All 69319052058260+0000 XR FEMUR 2 VIEWS All 47107964613612+0000 XR FEMUR 2 VIEWS All 85581593841970+0000 XR FEMUR 2 VIEWS All 79456319414933+0000 EKG Office Complete All 48517788777253+0000 EKG Office Complete All 09134716001832+0000 EKG Office Complete All +0000 Home Health Certification All +0000 Home Health Certification All +0000 Home Health Certification All Results/Labs No information. Social History date description facility +0000 Unknown if ever smoked All +0000 Unknown if ever smoked All Vital Signs date measurement value units +0000 BP_diastolic BP_diastolic 85 mmHg +0000 BP_diastolic BP_diastolic 85 mm[H g] 10588331434844+0000 BP_diastolic BP_diastolic 87 mmHg 43717361253967+0000 BP_diastolic BP_diastolic 87 mm[H g] 37111662920655+0000 BP_systolic BP_systolic 148 mmHg 21582601118445+0000 BP_systolic BP_systolic 148 mm[Hg] 28047183331795+0000 BP_systolic BP_systolic 162 mmHg 74250368010296+0000 BP_systolic BP_systolic 162 mm[Hg] 11637154936371+0000 heart_rate heart_rate 45 /min 70810596870063+0000 heart_rate heart_rate 57 /min 13311732703274+0000 respiration_rate respiration_rate 18 /min 11799958040393+0000 temperature_metric temperature_metric 37 C +0000 temperature_standard temperature_standard 9 8.6 F
--- NOTE | 2022-07-18 17:05 | CT Report ---
PROCEDURE: Head W/O Stroke Protocol INDICATIONS: headache, altered TECHNIQUE: Noncontrast 4.5 mm thick angled axial sections acquired from the foramen magnum to the vertex, with c oronal reformats. For radiation dose reduction, the following was used: automated exposure control, adjustment of mA and/or kV according to patient size. COMPARISON: FINDINGS: Image quality: Excellent. CSF spaces: Basal cisterns are patent. No extra-axial fluid collections. Ventricles are normal in size and shape. Brain: No midline shift. No intracranial masses or hemorrhage. Marked encephalomalacia is redemonst rated within the right occipital lobe unchanged from the study dated 12/19/2019. Dense atheromatous troy cifications are visualized within the vertebral arteries, the basilar artery, and the internal caroti d arteries. There are extensive deep and periventricular white matter changes as before. Skull and face: Calvarium and visualized facial bones are intact, without suspicious lesions. Sinuses: Visualized sinuses and mastoids are clear. IMPRESSION: 1. No acute intracranial findings. 2. Large region of right occipital encephalomalacia unchanged from 2020. 3. Extensive findings likely associated with chronic microvascular ischemic change. This study fulfills neurological imaging criteria for inclusion or exclusion of acute stroke therapie s based on available published neurological imaging guidelines. Reviewed by: Mariela Triana MD on 07/18/2022 5:04 PM PDT Approved by: Mariela Triana MD on 07/18/2022 5:04 PM PDT Station ID: [id number]
[2022-07-18 17:13] LABS: BASOPHILS # (AUTO) 0.1 10^3/uL (0.0-0.1); BASOPHILS % (AUTO) 0.7 %; EOSINOPHILS # (AUTO) 0.4 10^3/uL (0.0-0.7); EOSINOPHILS % (AUTO) 5.2 %; HCT - HEMATOCRIT 44.3 % (37.0-47.0); HGB - HEMOGLOBIN 14.8 g/dL (12.0-16.0); LYMPHOCYTES # (AUTO) 2.1 10^3/uL (1.5-3.5); MEAN CORPUSCULAR HGB CONC 33.4 g/dL (32.0-36.0); MEAN CORPUSCULAR VOLUME 95.9 fL (81.0-99.0); MONOCYTES # (AUTO) 0.7 10^3/uL (0.0-1.0); MONOCYTES % (AUTO) 10.4 %; NEUTROPHILS # (AUTO) 3.8 10^3/uL (1.5-6.6); NEUTROPHILS % (AUTO) 53.4 %; PLT - PLATELET COUNT 319 10^3/uL (130-450); RED BLOOD COUNT 4.62 10^6/uL (4.20-5.40); RED CELL DISTRIBUTION WIDTH 12.5 % (12.0-15.0); WHITE BLOOD COUNT 7.1 x10^3/uL (4.8-10.8)
[2022-07-18 17:26] LABS: ALBUMIN 4.3 g/dL (3.2-5.5); ALBUMIN/GLOBULIN RATIO 1.3 (1.0-2.2); BILIRUBIN,TOTAL 0.6 mg/dL (0.2-1.0); CALCIUM 9.6 mg/dL (8.5-10.3); CREATININE 0.8 mg/dL (0.4-1.0); POTASSIUM 3.7 mmol/L (3.5-5.0); TOTAL PROTEIN 7.6 g/dL (6.7-8.2)
--- NOTE | 2022-07-18 17:38 | ED Physician Documentation ---
History of Present Illness - Stated complaint Stated Complaint: VOMITING,SWEATS,DIZZINESS - Chief complaint Chief Complaint: Neuro - History obtained from History obtained from: Patient, Family - History of Present Illness Timing: Today Pain level max: 0 Pain level now: 0 - Additonal information Additional information: Patient is an 81-year-old female brought in by her today. They had left the orthopedic office and were on their way home when the patient went "unresponsive" and her eyes deviated to the right. This lasted for a few minutes, but then she was confused and having speech difficulties. Did not have any focal neurological deficits other than this but did say that she felt weak at the time. states that she has had a stroke in the past and has had seizures in the past but has not had a seizure for a long time. No fevers. No chills. No cough. No congestion. No abdominal pain. No nausea or vomiting. Review of Systems Ten Systems: 10 systems reviewed and negative Constitutional: denies: Fever, Chills Nose: denies: Rhinorrhea / runny nose, Congestion Cardiac: denies: Palpitations Respiratory: denies: Dyspnea, Cough GI: denies: Abdominal Pain, Nausea, Vomiting, Diarrhea Skin: denies: Rash Musculoskeletal: denies: Neck pain, Back pain Neurologic: reports: Generalized weakness, Headache (mild headache). denies: Focal weakness, Numbness PD PAST MEDICAL HISTORY - Past Medical History Cardiovascular: Hypertension Respiratory: None Neuro: CVA, Headaches, Seizure disorder Endocrine/Autoimmune: None GI: GERD PAPER TESTER: None : Incontinence HEENT: None Psych: None Musculoskeletal: None Derm: None - Past Surgical History Past Surgical History: Yes General: Bowel surgery, Hiatal hernia repair, Colonoscopy Ortho: Knee replacement - Present Medications Home Medications: Ambulatory Orders Medication Instructions Recorded Confirmed Multivitamin [Multiple Vitamins] 1 tab PO DAILY 10/24/16 04/23/20 Lactobacillus Acidophilus 1 tab PO DAILY 12/19/19 04/23/20 [Probiotic Acidophilus] Nitrofurantoin Monohyd/M-Cryst 100 mg PO BID #10 capsule 07/09/20 [Macrobid 100 mg Capsule] Aspirin 81 DAILY 09/07/20 HYDROcod/ACETAM 5/325 [[place] 5/325] 1 ea PO Q6H PRN #10 tablet 09/07/20 amLODIPine [Norvasc] 09/07/20 Oxycodone HCl/Acetaminophen 1 - 2 each PO Q6H PRN #30 tablet 05/26/22 [Percocet 5-325 mg Tablet] cephALEXin [Keflex] 500 mg PO Q6H #20 cap 07/18/22 - Allergies Allergies/Adverse Reactions: Allergies Allergy/AdvReac Type Severity Reaction Status Date / Time Sulfa (Sulfonamide Allergy Severe Itching Verified 05/27/22 06:50 Antibiotics) erythromycin base Allergy Intermediate Rash Verified 05/27/22 06:50 [Erythromycin Base] - Social History Does the pt smoke?: No Smoking Status: Never smoker Does the pt drink ETOH?: No Does the pt have substance abuse?: No - Immunizations Immunizations are current?: Yes - POLST Patient has POLST: Yes POLST Status: DNR PD ED PE NORMAL - Vitals Vital signs reviewed: Yes - General General: Alert and oriented X 3, No acute distress, Well developed/nourished - HEENT HEENT: Atraumatic, PERRL, EOMI, Ears normal, Moist mucous membranes, Pharynx benign - Neck Neck: Supple, no meningeal sign, No bony TTP - Cardiac Cardiac: RRR, Strong equal pulses - Respiratory Respiratory: No respiratory distress, Clear bilaterally - Abdomen Abdomen: Soft, Non tender, Non distended - Derm Derm: Warm and dry - Extremities Extremities: No deformity, No edema, No calf tenderness / cord - Neuro Neuro: learning and development intern 2-12 intact, No motor deficit, No sensory deficit, Normal speech Eye Opening: Spontaneous Motor: Obeys Commands Verbal: Oriented (slow to respond) GCS Score: 15 - Psych Psych: Normal mood, Normal affect Results - Vitals Vitals: Vital Signs - 24 hr 07/18/22 07/18/22 07/18/22 16:39 17:07 18:17 Temperature 37.2 C Heart Rate 77 53 L 57 L Respiratory 18 17 18 Rate Blood Pressure 171/87 H 155/75 H 152/73 H O2 Saturation 99 94 95 07/18/22 07/18/22 18:33 19:00 Temperature Heart Rate 58 L 59 L Respiratory 19 18 Rate Blood Pressure 140/82 H 149/78 H O2 Saturation 98 99 Oxygen O2 Source [] Room air O2 Source [] Room air O2 Source Room air - EKG (time done) 1656 Rate: Rate (enter#) (54) Rhythm: NSR Intervals: RBBB - Labs Labs: Laboratory Tests 07/18/22 07/18/22 07/18/22 16:44 16:57 16:57 WBC 7.1 RBC 4.62 Hgb 14.8 Hct 44.3 MCV 95.9 MCH 32.0 H MCHC 33.4 RDW 12.5 Plt Count 319 MPV 9.0 Neut # (Auto) 3.8 Lymph # (Auto) 2.1 [place] # (Auto) 0.7 Eos # (Auto) 0.4 Baso # (Auto) 0.1 Absolute Nucleated RBC 0.00 Nucleated RBC % 0.0 Sodium 137 Potassium 3.7 Chloride 108 Carbon Dioxide 18 L Anion Gap 11.0 BUN 15 Creatinine 0.8 Estimated GFR (MDRD) 69 L Glucose 127 H POC Whole Bld Glucose 131 H Calcium 9.6 Total Bilirubin 0.6 AST 16 ALT 17 Alkaline Phosphatase 90 Total Protein 7.6 Albumin 4.3 Globulin 3.3 Albumin/Globulin Ratio 1.3 Lipase 30 Urine Color Urine Clarity Urine pH Ur Specific [place] Urine Protein Urine Glucose (UA) Urine Ketones Urine Occult Blood Urine Nitrite Urine Bilirubin Urine Urobilinogen Ur Leukocyte Esterase Urine RBC Urine WBC Urine WBC Clumps Ur Epithelial Cells Ur Squamous Epith Cells Amorphous Sediment Urine Bacteria Ur Microscopic Review Urine Culture Comments 07/18/22 18:30 WBC RBC Hgb Hct MCV MCH MCHC RDW Plt Count MPV Neut # (Auto) Lymph # (Auto) [place] # (Auto) Eos # (Auto) Baso # (Auto) Absolute Nucleated RBC Nucleated RBC % Sodium Potassium Chloride Carbon Dioxide Anion Gap BUN Creatinine Estimated GFR (MDRD) Glucose POC Whole Bld Glucose Calcium Total Bilirubin AST ALT Alkaline Phosphatase Total Protein Albumin Globulin Albumin/Globulin Ratio Lipase Urine Color YELLOW Urine Clarity HAZY Urine pH 6.0 Ur Specific [place] 1.025 Urine Protein 30 H Urine Glucose (UA) NEGATIVE Urine Ketones TRACE Urine Occult Blood NEGATIVE Urine Nitrite POSITIVE H Urine Bilirubin NEGATIVE Urine Urobilinogen 0.2 (NORMAL) Ur Leukocyte Esterase NEGATIVE Urine RBC 0-5 Urine WBC 6-10 H Urine WBC Clumps PRESENT Ur Epithelial Cells RARE Transitional Ur Squamous Epith Cells RARE Squamous Amorphous Sediment Few Urine Bacteria Many H Ur Microscopic Review INDICATED Urine Culture Comments INDICATED - Rads (name of study) head Ct Radiology: Final report received, EMP read contemporaneously, See rad report PD MEDICAL DECISION MAKING - ED course Complexity details: reviewed old records, reviewed results, re-evaluated patient, considered differential, d/w patient, d/w family ED course: Patient is an 81-year-old female who apparently had seizure-like activity in the car today. She appeared to be postictal upon arrival to the emergency department. Her mental status gradually cleared back to her normal baseline. No acute findings on head CT. and patient states that she does have a history of seizures. She does have a UTI and possible that this led to the seizure today. We will treat the UTI. She does not have any focal neurological deficits. She did not have any focal neurological deficits upon arrival. Do not feel that this represents a TIA or stroke. Patient and family counseled regarding signs and symptoms for which I believe and urgent re-evaluation would be necessary. Patient with good understanding of and agreement to plan and is comfortable going home at this time This document was made in part using voice recognition software. While efforts are made to proofread this document, sound alike and grammatical errors may occur. Departure - Departure Disposition: 01 Home, Self Care Clinical Impression: Seizure UTI (urinary tract infection) Qualifiers: Urinary tract infection type: acute cystitis Hematuria presence: without hematuria Qualified Code(s): N30.00 - Acute cystitis without hematuria Condition: Good Instructions: ED Seizure Recurrent, ED UTI Cystitis Female Follow-Up: Izaiah Meza MD [Primary Care Provider] - Within 3 Days Prescriptions: cephALEXin [Keflex] 500 mg PO Q6H #20 cap Comments: Your antibiotics were sent to [facility] in [place]. Please follow-up with your doctor for further care. Return if you worsen. Discharge Date/Time: 07/18/22 19:09 NIHSS - Time Time: 16:39 - Level of Consciousness Level of consciousness: (0) Alert, Keenly responsive LOC Questions: (0) Answers both Q's correct LOC Commands: (0) Performs both correctly - Gaze Best Gaze: (0) Normal - Visual Visual: (0) No loss - Facial Palsy Facial Palsy: (0) Normal, symmetrical movement - Motor Arms (both separate) Motor Arm (right): (0) No drift Motor Arm (left): (0) No drift - Motor Legs (both separate) Motor Leg (right): (0) No drift Motor Leg (left): (0) No drift - Limb Ataxia Limb Ataxia: (0) Absent - Sensory Sensory: (0) Normal - Best Language Best Language: (0) No aphasia - Dysarthria Dysarthria: (0) Normal - Extinction and Inattention (formally neg Extinction and inattention: (0) No abnormality - Total Score/Results Total Score/Result: 0
[2022-07-18 18:40] LABS: BILIRUBIN,URINE NEGATIVE (NEGATIVE); GLUCOSE, URINE (UA) NEGATIVE (NEGATIVE); KETONES,URINE (UA) TRACE mg/dL (NEGATIVE); LEUKOCYTE ESTERASE, URINE NEGATIVE (NEGATIVE); NITRITE,URINE POSITIVE (NEGATIVE); OCCULT BLOOD,URINE NEGATIVE (NEGATIVE); PROTEIN,URINE 30 mg/dL (NEGATIVE); UROBILINOGEN,URINE 0.2 (NORMAL) E.U./dL (NORMAL)
[2022-07-18 18:43] LABS: CLARITY,URINE HAZY (CLEAR)
[2022-07-18 18:44] LABS: AMORPHOUS SEDIMENT,UR Few /LPF; BACTERIA,URINE Many /HPF (None Seen); EPITHELIAL CELLS,UR RARE Transitional /HPF (<= Few); RBC,URINE 0-5 /HPF (0-5); SQUAMOUS EPITHELIAL CELL,UR RARE Squamous (<= Few); WBC CLUMPS,URINE PRESENT
[2022-07-18] MEDS ORDERED: cefTRIAXone 1 GM VIAL IVP STA (18:46)
[2022-07-18 19:02] VITALS: BP 149/78
== END 2022-07-18 19:09 | disposition home or self-care (01) ==
LOC: ED 16:30
DX: R56.9 Unspecified convulsions (principal); N30.00 Acute cystitis without hematuria; I10 Essential (primary) hypertension
CPT/HCPCS: 36415; 80053; 81001; 81003; 83690; 85025; 87086; 87181; 93005; 96374; 99284

== ENCOUNTER 2022-08-29 08:00 | Outpatient (CLI) | payer MEDICARE, BC ==
--- NOTE | 2022-08-29 14:38 | XRAY Report ---
PROCEDURE: Femur LT INDICATIONS: LEFT FEMUR FRACTURE TECHNIQUE: 2 views of the femur were acquired. COMPARISON: X-ray left femur, 05/27/2022, 06/19/2022 and 07/18/2022. FINDINGS: Bones: There is a nondisplaced oblique fracture in distal femur. No dislocations. No suspicious bon y lesions. There is knee total arthroplasty. Mild hip joint degeneration. Soft tissues: Extensive soft tissue calcifications in the proximal to mid thigh. Vascular calcificati on consistent with atherosclerosis. IMPRESSION: 1. Nondisplaced oblique fracture of the distal femur with stable alignment. 2. Degenerative and postsurgical changes as noted. 3. 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 Severe atherosclerosis. Reviewed by: Chandler Sweeney MD on 08/29/2022 2:37 PM PDT Approved by: Chandler Sweeney MD on 08/29/2022 2:37 PM PDT Station ID: [id number]
--- NOTE | 2022-08-29 19:17 | XRAY Report ---
PROCEDURE: Knee 3 View LT INDICATIONS: LEFT FEMUR FRACTURE TECHNIQUE: 3 views of the left knee(s) were acquired. COMPARISON: 07/18/2020 FINDINGS: Bones: Oblique fracture through the distal femoral diaphysis skin noted, unchanged from the prior. T otal knee arthroplasty remains unchanged. No evidence of hardware failure or loosening. No joint effu patrick. Soft tissues: Atherosclerotic vascular calcification IMPRESSION: Persistent lucency through distal femoral periprosthetic nondisplaced fracture, without change from t he prior Reviewed by: Manny Fraga MD on 08/29/2022 6:15 PM PATO Approved by: Manny Fraga MD on 08/29/2022 6:15 PM PATO Station ID: [id number]
== END 2022-08-29 23:59 | disposition home or self-care (01) ==
LOC: DI.WOS 08:00
PROVIDERS: ATTEND Orthopaedic Surgery
DX: M97.12XD Periprosthetic fracture around internal prosthetic left knee joint, subsequent encounter (principal); M16.12 Unilateral primary osteoarthritis, left hip

== ENCOUNTER 2022-10-24 15:49 | Outpatient (CLI) | payer MEDICARE, BC ==
--- NOTE | 2022-10-25 12:04 | XRAY Report ---
PROCEDURE: Femur LT INDICATIONS: LEFT FEMUR FRACTURE TECHNIQUE: 2 views of the femur were acquired. COMPARISON: Left femur radiographs 08/29/2022 FINDINGS: Redemonstrated oblique minimally displaced fracture of the distal femur just proximal to the femoral component of the knee arthroplasty. The fracture plane remains visible. Alignment of the fracture mallorie ears similar to before. Extensive soft tissue calcifications present about the mid and upper lateral thigh redemonstrated. Vascular calcifications also present. IMPRESSION: Similar alignment of the previously demonstrated distal femur fracture. The fracture plane remains vi sible. Reviewed by: Dieter Franks MD on 10/25/2022 12:02 PM PST Approved by: Dieter Franks MD on 10/25/2022 12:02 PM PST Station ID: [id number]
== END 2022-10-24 15:50 | disposition home or self-care (01) ==
LOC: DI.WOS 15:49
PROVIDERS: ATTEND Orthopaedic Surgery
DX: M97.12XA Periprosthetic fracture around internal prosthetic left knee joint, initial encounter (principal)

== ENCOUNTER 2023-07-03 00:47 | Outpatient (CLI) | payer MEDICARE, BC | END 2023-07-03 23:59 | disposition critical access hospital (66) | LOC: EMS 00:47 | DX: R55 Syncope and collapse (principal) | CPT/HCPCS: A0425; A0427 ==

== ENCOUNTER 2023-07-03 01:00 | Emergency (ER) | payer MEDICARE, BC ==
[2023-07-03 02:40] LABS: BASOPHILS # (AUTO) 0.1 10^3/uL (0.0-0.1); BASOPHILS % (AUTO) 0.8 %; EOSINOPHILS # (AUTO) 0.3 10^3/uL (0.0-0.7); EOSINOPHILS % (AUTO) 3.1 %; HGB - HEMOGLOBIN 13.7 g/dL (12.0-16.0); LYMPHOCYTES # (AUTO) 1.3 10^3/uL (1.5-3.5); LYMPHOCYTES % (AUTO) 15.5 %; MEAN CORPUSCULAR HEMOGLOBIN 30.8 pg (27.0-31.0); MEAN CORPUSCULAR HGB CONC 31.9 g/dL (32.0-36.0); MEAN CORPUSCULAR VOLUME 96.6 fL (81.0-99.0); MEAN PLATELET VOLUME 9.1 fL (7.9-10.8); MONOCYTES # (AUTO) 0.7 10^3/uL (0.0-1.0); MONOCYTES % (AUTO) 7.7 %; NEUTROPHILS # (AUTO) 6.3 10^3/uL (1.5-6.6); NEUTROPHILS % (AUTO) 72.6 %; PLT - PLATELET COUNT 305 10^3/uL (130-450); RED BLOOD COUNT 4.45 10^6/uL (4.20-5.40); RED CELL DISTRIBUTION WIDTH 13.2 % (12.0-15.0); WHITE BLOOD COUNT 8.7 x10^3/uL (4.8-10.8)
[2023-07-03 02:55] LABS: ALBUMIN/GLOBULIN RATIO 1.4 (1.0-2.2); BILIRUBIN,TOTAL 0.3 mg/dL (0.2-1.0); CALCIUM 9.3 mg/dL (8.5-10.3); CREATININE 0.8 mg/dL (0.6-1.3); POTASSIUM 3.6 mmol/L (3.5-4.5); TOTAL PROTEIN 6.9 g/dL (6.4-8.9)
[2023-07-03 02:58] LABS: TROPONIN I HIGH SENSITIVITY 13.2 ng/L (2.3-14.8)
--- NOTE | 2023-07-03 03:29 | ED Physician Documentation ---
PD HPI SYNCOPE - Stated complaint Stated Complaint: SYNCOPE - Chief complaint Chief Complaint: Neuro - History obtained from History obtained from: Patient - History of Present Illness Witnessed: Unwitnessed - Additional information Additional information: BIBA. Patient had syncopal episode approximately midnight. Patient does not recall event. of patient heard patient fall, found her on the floor in the entryway to her bathroom. notified the patient's granddaughter who lives with them; she is in ED at bedside and contributed to HPI. Granddaughter says she found patient on the floor near the bathroom, unconscious and minimally responsive, pale and diaphoretic. 911 called. Granddaughter says that over the ensuing 2-3 minutes, patient gradually began to respond and slowly began to verbally communicate, her color returned to baseline as did her mental status. On this HPI, patient is asymptomatic. She tells me she feels fine. She denies MICHELE, weakness, numbness.Denies chest pain, palpitations, n/v, abdominal pain. Again, she does not recall event and has no recall of any symptoms or events leading up to her passing out. 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 : Incontinence HEENT: None Psych: None Musculoskeletal: None Derm: None - Past Surgical History Past Surgical History: Yes General: Bowel surgery, Hiatal hernia repair, Colonoscopy Ortho: Knee replacement - Present Medications Home Medications: Ambulatory Orders Medication Instructions Recorded Confirmed Multivitamin [Multiple Vitamins] 1 tab PO DAILY 10/24/16 04/23/20 Lactobacillus Acidophilus 1 tab PO DAILY 12/19/19 04/23/20 [Probiotic Acidophilus] Nitrofurantoin Monohyd/M-Cryst 100 mg PO BID #10 capsule 07/09/20 [Macrobid 100 mg Capsule] Aspirin 81 DAILY 09/07/20 HYDROcod/ACETAM 5/325 [[place] 5/325] 1 ea PO Q6H PRN #10 tablet 09/07/20 amLODIPine [Norvasc] 09/07/20 Oxycodone HCl/Acetaminophen 1 - 2 each PO Q6H PRN #30 tablet 05/26/22 [Percocet 5-325 mg Tablet] cephALEXin [Keflex] 500 mg PO Q6H #20 cap 07/18/22 - Allergies Allergies/Adverse Reactions: Allergies Allergy/AdvReac Type Severity Reaction Status Date / Time Sulfa (Sulfonamide Allergy Severe Itching Verified 05/27/22 06:50 Antibiotics) erythromycin base Allergy Intermediate Rash Verified 05/27/22 06:50 [Erythromycin Base] - Social History Does the pt smoke?: No Smoking Status: Never smoker Does the pt drink ETOH?: No Does the pt have substance abuse?: No - Immunizations Immunizations are current?: Yes - POLST Patient has POLST: Yes POLST Status: DNR PD ED PE NORMAL - Vitals Vital signs reviewed: Yes - General General: Alert and oriented X 3, No acute distress, Well developed/nourished - HEENT HEENT: Atraumatic, PERRL, EOMI - Neck Neck: Supple, no meningeal sign, No bony TTP - Cardiac Cardiac: RRR - Respiratory Respiratory: No respiratory distress, Clear bilaterally - Abdomen Abdomen: Soft, Non tender - Back Back: No spinal TTP - Derm Derm: Normal color, Warm and dry - Extremities Extremities: No edema - Neuro Neuro: Alert and oriented X 3, 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 Relevant findings are: Rate: Rate (enter#) (76) Rhythm: NSR [place]: LAD Intervals: RBBB QRS: LVH Ischemia: Normal ST segments Compare to prior EKG: Unchanged from prior EKG - Labs Labs: Microbiology 07/03/23 05:10 Urine Culture - Preliminary Urine,Clean Catch Escherichia Coli Laboratory Tests 07/03/23 07/03/23 07/03/23 02:32 02:32 05:10 WBC 8.7 RBC 4.45 Hgb 13.7 Hct 43.0 MCV 96.6 MCH 30.8 MCHC 31.9 L RDW 13.2 Plt Count 305 MPV 9.1 Neut # (Auto) 6.3 Lymph # (Auto) 1.3 L [place] # (Auto) 0.7 Eos # (Auto) 0.3 Baso # (Auto) 0.1 Absolute Nucleated RBC 0.00 Nucleated RBC % 0.0 Sodium 143 Potassium 3.6 Chloride 114 H Carbon Dioxide 21 Anion Gap 8.0 BUN 14 Creatinine 0.8 Estimated GFR (MDRD) 69 L Glucose 96 Calcium 9.3 Total Bilirubin 0.3 AST 11 ALT 10 Alkaline Phosphatase 111 Troponin I High Sens 13.2 Total Protein 6.9 Albumin 4.0 Globulin 2.9 Albumin/Globulin Ratio 1.4 Lipase 19 Urine Color YELLOW Urine Clarity HAZY Urine pH 5.5 Ur Specific [place] 1.025 Urine Protein NEGATIVE Urine Glucose (UA) NEGATIVE Urine Ketones NEGATIVE Urine Occult Blood NEGATIVE Urine Nitrite POSITIVE H Urine Bilirubin NEGATIVE Urine Urobilinogen 0.2 (NORMAL) Ur Leukocyte Esterase NEGATIVE Urine RBC 0-5 Urine WBC 0-3 Ur Squamous Epith Cells FEW Squamous Urine Bacteria Few Urine Mucus Few Strands Ur Microscopic Review INDICATED Urine Culture Comments INDICATED - Rads (name of study) chest xray Relevant Findings:: Prelim report reviewed, See rad report CTH Relevant Findings:: Prelim report reviewed, See rad report PD Medical Decision Making - ED course Complexity details: reviewed results, re-evaluated patient, considered differential, d/w patient, d/w family ED course: 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 Normal CBC, ER abdominal panel, UA (positive for nitrites but o/w unremarkable including microscopy). No acute findings on CXR (cardiomegaly noted) nor CTH (encephal omalacia comparable to previous study). Cause of patient's syncope is not apparent at this time. Results d/w patient and granddaughter, return precautions reviewed. Advised to follow up with PMD for reevaluation even if she remains asymptomatic. Departure - Departure Disposition: 01 Home, Self Care Clinical Impression: Syncope Qualifiers: Syncope type: unspecified Qualified Code(s): R55 - Syncope and collapse Condition: Good Instructions: ED Fainting Unkn Cause Follow-Up: Izaiah Meza MD [Primary Care Provider] - Comments: There were no concerning nor diagnostic findings on tonight's test, including the blood test, EKG, chest xray, and CT scan of your head. It is unclear at this time what caused you to pass out tonight. Contact your primary care provider when the office opens later this morning to arrange for next available appointment. Further testing might be needed even if you are feeling well. Forms: PCP List Discharge Date/Time: 07/03/23 07:48
[2023-07-03] MEDS ORDERED: SODIUM CHLORIDE 0.9% 1,000 ML IV STA (03:49)
[2023-07-03] MEDS ORDERED: PANTOPRAZOLE 40 MG TABLET PO STA (04:46)
[2023-07-03 05:22] LABS: BILIRUBIN,URINE NEGATIVE (NEGATIVE); GLUCOSE, URINE (UA) NEGATIVE (NEGATIVE); KETONES,URINE (UA) NEGATIVE (NEGATIVE); LEUKOCYTE ESTERASE, URINE NEGATIVE (NEGATIVE); NITRITE,URINE POSITIVE (NEGATIVE); OCCULT BLOOD,URINE NEGATIVE (NEGATIVE); PH,URINE 5.5 PH (5.0-7.5); PROTEIN,URINE NEGATIVE (NEGATIVE); UROBILINOGEN,URINE 0.2 (NORMAL) E.U./dL (NORMAL)
[2023-07-03 05:30] LABS: CLARITY,URINE HAZY (CLEAR)
[2023-07-03 05:31] LABS: BACTERIA,URINE Few /HPF (None Seen); MUCUS,URINE Few Strands; RBC,URINE 0-5 /HPF (0-5); SQUAMOUS EPITHELIAL CELL,UR FEW Squamous (<= Few); WBC,URINE 0-3 /HPF (0-5)
[2023-07-03 07:28] VITALS: BP 157/88; O2SAT 100
--- NOTE | 2023-07-03 07:32 | XRAY Report ---
PROCEDURE: Chest 2 View X-Ray INDICATIONS: syncope TECHNIQUE: 2 views of the chest were acquired. COMPARISON: 09/07/2020 FINDINGS: Surgical changes and devices: Surgical clips noted in the region of the gastroesophageal junction as before. Surgical clips in the right upper abdomen compatible with prior cholecystectomy. Lungs and pleura: No pleural effusions or pneumothorax. Lungs are clear. Small nodular densities no sunitha in the bilateral lung bases are stable and may represent vessels seen on end versus small granulo mas. Mediastinum: Mediastinal contours appear stable with ectatic appearance of the thoracic aorta. Hear t size is enlarged. Bones and chest wall: No suspicious bony lesions. Overlying soft tissues appear unremarkable. IMPRESSION: Cardiomegaly. No acute cardiopulmonary abnormalities. Findings are concordant with preliminary interpretation provided by [facility]. Reviewed by: Ruddy Finch MD on 07/03/2023 7:31 AM PDT Approved by: Ruddy Finch MD on 07/03/2023 7:31 AM PDT Station ID: [id number]
--- NOTE | 2023-07-03 07:36 | CT Report ---
PROCEDURE: HEAD WO INDICATIONS: syncope, MICHELE TECHNIQUE: Noncontrast 4.5 mm thick angled axial sections acquired from the foramen magnum to the vertex. For r adiation dose reduction, the following was used: automated exposure control, adjustment of mA and/or kV according to patient size. COMPARISON: 07/18/2022, 12/19/2019 FINDINGS: Image quality: Diagnostic. CSF spaces: Basal cisterns are patent. No extra-axial fluid collections. Ventricles are stable in size and shape. Brain: No midline shift. No intracranial masses or hemorrhage. No mass effect. Lorenz-white matter i nterface is normal. Redemonstration of encephalomalacia involving the posterior right parietal lobe. Remote appearing lacunar infarct of the right thalamus region. There is significant cerebral volume l oss for age with resultant ventricular and sulcal prominence. There are moderate periventricular and deep white matter chronic small vessel ischemic changes. Moderate atherosclerotic calcifications are noted in the intracranial segments of the bilateral internal carotid arteries as well as the posterio r circulation. Skull and face: Calvarium and visualized facial bones are intact, without suspicious lesions. Sinuses: Visualized sinuses and mastoids are clear. IMPRESSION: CT head without acute intracranial abnormalities. Stable appearance of remote posterior right parietal lobe and remote right lacunar infarction. Moderate age-related senescent changes and sequela of chronic small vessel ischemic disease. No significant discrepancy with initial interpretation by overnight radiologist. Reviewed by: Ruddy Finch MD on 07/03/2023 7:35 AM PDT Approved by: Ruddy Finch MD on 07/03/2023 7:35 AM PDT Station ID: [id number]
--- NOTE | 2023-07-05 20:58 | ED Physician Documentation ---
ED Addendum - Addendum Addendum: 07/05/23 20:56 Urine culture came back positive for e coli. On chart review, patient was not having urinary symptoms therefore this is asymptomatic bacteriuria and does not merit antibiotic treatment. Dr. Hernandez noted nitrites in urine on initial u/a and did not treat. No meds sent to pharmacy.
== END 2023-07-03 07:48 | disposition home or self-care (01) ==
LOC: EDBD → EDUNIT# → ED 01:00
DX: R55 Syncope and collapse (principal); R82.71 Bacteriuria; B96.20 Unspecified Escherichia coli [E. coli] as the cause of diseases classified elsewhere; I10 Essential (primary) hypertension; G40.909 Epilepsy, unspecified, not intractable, without status epilepticus; Z86.73 Personal history of transient ischemic attack (TIA), and cerebral infarction without residual deficits
CPT/HCPCS: 36415; 70450; 71046; 80053; 81001; 83690; 84484; 85025; 87086; 87181; 93005; 99283; 99284; A9270; 81003

== ENCOUNTER 2024-02-28 12:53 | Emergency (ER) | payer MEDICARE, BC ==
--- NOTE | 2024-02-28 13:23 | ED Physician Documentation ---
History of Present Illness - Stated complaint Stated Complaint: SYNCOPE - Chief complaint Chief Complaint: Cardiac - History obtained from History obtained from: Patient, EMS - Additonal information Additional information: The patient comes to the emergency department with chief complaint of syncopal episode. She does not really remember the incident but EMS states that the told them the patient was sitting on the toilet having a bowel movement when she passed out. This has happened a number of times before to this patient and circumstances seen the same. Patient denies any pain anywhere. She states she feels pretty good. She has a history of some moderate dementia. Medics report that the was able to catch her as he was in the bathroom with her and that she never did hit her head or otherwise get injured no other complaints at this time. 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 : Incontinence HEENT: None Psych: None Musculoskeletal: None Derm: None - Past Surgical History Past Surgical History: Yes General: Bowel surgery, Hiatal hernia repair, Colonoscopy Ortho: Knee replacement - Present Medications Home Medications: Ambulatory Orders Medication Instructions Recorded Confirmed Multivitamin [Multiple Vitamins] 1 tab PO DAILY 10/24/16 04/23/20 Lactobacillus Acidophilus 1 tab PO DAILY 12/19/19 04/23/20 [Probiotic Acidophilus] Nitrofurantoin Monohyd/M-Cryst 100 mg PO BID #10 capsule 07/09/20 [Macrobid 100 mg Capsule] Aspirin 81 DAILY 09/07/20 HYDROcod/ACETAM 5/325 [[place] 5/325] 1 ea PO Q6H PRN #10 tablet 09/07/20 amLODIPine [Norvasc] 09/07/20 Oxycodone HCl/Acetaminophen 1 - 2 each PO Q6H PRN #30 tablet 05/26/22 [Percocet 5-325 mg Tablet] cephALEXin [Keflex] 500 mg PO Q6H #20 cap 07/18/22 - Allergies Allergies/Adverse Reactions: Allergies Allergy/AdvReac Type Severity Reaction Status Date / Time Sulfa (Sulfonamide Allergy Severe Itching Verified 02/28/24 13:14 Antibiotics) erythromycin base Allergy Intermediate Rash Verified 02/28/24 13:14 [Erythromycin Base] - Social History Does the pt smoke?: No Smoking Status: Never smoker Does the pt drink ETOH?: No Does the pt have substance abuse?: No - Immunizations Immunizations are current?: Yes - POLST Patient has POLST: Yes POLST Status: DNR PD ED PE NORMAL - Vitals Vital signs reviewed: Yes - General General: No acute distress, Well developed/nourished, Other (Alert, pleasant, well-appearing female in no apparent distress.) - HEENT HEENT: Atraumatic, PERRL, EOMI, Moist mucous membranes - Neck Neck: Supple, no meningeal sign, No bony TTP - Cardiac Cardiac: RRR, No murmur - Respiratory Respiratory: No respiratory distress, Clear bilaterally - Abdomen Abdomen: Soft, Non tender, Non distended - Derm Derm: Normal color, Warm and dry, No rash - Extremities Extremities: No deformity - Neuro Neuro: Other (Alert, answers questions appropriately, some memory lapses. No gross deficits.) - Psych Psych: Normal mood, Normal affect Results - Vitals Vitals: Vital Signs - 24 hr 02/28/24 02/28/24 02/28/24 14:00 14:30 14:51 Heart Rate 57 L 61 62 Respiratory 15 15 20 Rate Blood Pressure 143/77 H O2 Saturation 99 99 98 Oxygen O2 Source [With Activity] Room air O2 Source [Without Activity] Room air O2 Source Room air - EKG (time done) 1356 EKG releavant findings:: EKG personally interpreted by author of this note. Relevant findings are: Rate: Rate (enter#) (59) Rhythm: NSR [place]: Normal Intervals: Normal [place], RBBB QRS: LVH Ischemia: Non specific changes Compare to prior EKG: Old EKG unavailable Computer interpretation: Agree with computer PD Medical Decision Making - ED course Complexity details: reviewed results, re-evaluated patient, considered differential, d/w patient ED course: The patient overall appeared very well and these symptoms had occurred previously. She was worked up with EKG and given a 500 cc bolus 0.9 normal saline. EKG demonstrated no findings of acute concern, and pt reported feeling well. This had happened many times before, with pt already being worked up for it, and I did not feel any further work-up or intervention was indicated at this time. The pt was stable for d/c home, and has been given the usual indications for return. Departure - Departure Disposition: 01 Home, Self Care Clinical Impression: Syncope Qualifiers: Syncope type: unspecified Qualified Code(s): R55 - Syncope and collapse Condition: Stable Instructions: ED Syncope Vasovagal Comments: There is no evidence of an emergent condition causing your fainting episode today. You've been treated with a liter of saline solution through the IV, and your EKG looks good. Please follow up with your primary doctor for further concerns. Forms: PCP List Discharge Date/Time: 02/28/24 14:55
[2024-02-28] MEDS: SODIUM CHLORIDE 0.9% 500 ML IV STA (13:33)
[2024-02-28 14:52] VITALS: BP 143/77; O2SAT 98
== END 2024-02-28 14:55 | disposition home or self-care (01) ==
LOC: EDBD → EDUNIT# → ED 12:53
DX: R55 Syncope and collapse (principal); F03.90 Unspecified dementia, unspecified severity, without behavioral disturbance, psychotic disturbance, mood disturbance, and anxiety; I10 Essential (primary) hypertension; G40.909 Epilepsy, unspecified, not intractable, without status epilepticus; Z86.73 Personal history of transient ischemic attack (TIA), and cerebral infarction without residual deficits; Z79.899 Other long term (current) drug therapy
CPT/HCPCS: 93005; 99283

== ENCOUNTER 2024-03-12 15:30 | Outpatient (CLI) | payer MEDICARE, BC | END 2024-03-12 23:59 | disposition EMS.NT | LOC: EMS 15:30 | DX: S09.92XA Unspecified injury of nose, initial encounter (principal); W01.0XXA Fall on same level from slipping, tripping and stumbling without subsequent striking against object, initial encounter; Y92.008 Other place in unspecified non-institutional (private) residence as the place of occurrence of the external cause ==

== ENCOUNTER 2024-03-12 16:17 | Emergency (ER) | payer MEDICARE, BC ==
--- NOTE | 2024-03-12 17:32 | CT Report ---
PROCEDURE: Maxillofacial WO INDICATIONS: fall, facial pain TECHNIQUE: Noncontrast 1.5 mm thick axial images acquired from the mandible through the frontal sinuses, with co frieda and sagittal reformatting. 3-D reformatted images were performed. For radiation dose reduct ion, the following was used: automated exposure control, adjustment of mA and/or kV according to pat ient size. COMPARISON: Correlation is made with the accompanying imaging. FINDINGS: Image quality: Excellent. Bones and teeth: Comminuted nasal bone fractures are seen, which are deviated to the right. No defin ite fracture of the nasal septum can be seen. There is chronic moderate leftward nasal septal deviati on, with a leftward directed bony nasal septal spur. Orbital enriquez are intact. Sinus enriquez show no fracture or deformity. Visualized portions of the man dible demonstrate no fractures or subluxation. Zygomatic arches are intact. Pterygoid plates are in tact. Visualized portions of the skull base and auditory canals are intact. 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 Sinuses: Paranasal sinuses are aerated, without fluid levels, mucosal thickening, or mucoceles. Mas toid air cells are aerated. Soft tissues: Nasal soft tissue swelling and soft tissue gas can be seen. Vascular: Visualized vascu lar structures appear normal in the absence of contrast. Bony vascular foramina and canals are intac t. IMPRESSION: Nasal bone fractures are seen, with associated soft tissue swelling and soft tissue gas. No additional facial bone fractures are seen. Reviewed by: Dalton Ferrera MD on 03/12/2024 4:31 PM PATO Approved by: Dalton Ferrera MD on 03/12/2024 4:31 PM PATO Station ID: [id number]
--- NOTE | 2024-03-12 17:34 | CT Report ---
PROCEDURE: Head WO INDICATIONS: fall, head injury TECHNIQUE: Noncontrast 4.5 mm thick angled axial sections acquired from the foramen magnum to the vertex. For r adiation dose reduction, the following was used: automated exposure control, adjustment of mA and/or kV according to patient size. COMPARISON: 07/03/2023. Correlation is made with the accompanying imaging. FINDINGS: Image quality: Excellent. CSF spaces: Basal cisterns are patent. No extra-axial fluid collections. Ventricles are normal in size and shape. Brain: No midline shift. No intracranial masses or hemorrhage. Lorenz-white matter interface is norm al. Age-appropriate brain parenchymal volume loss and chronic small vessel ischemic change can be se en. There is a remote infarction involving the posterior aspect of the right cerebral hemisphere. Skull and face: Nasal bone fractures are seen, which are deviated to the right. Associated soft tiss ue swelling and soft tissue gas can be seen. No displaced chondral fracture can be seen. Hyperostosis frontalis is incidentally noted, which is not frankly abnormal for a female patient of this age. S inuses: Visualized sinuses and mastoids are clear. IMPRESSION: Nasal bone fractures, with associated soft tissue swelling. No intracranial hemorrhage is seen. No significant intracranial abnormality is seen. A remote infarction is seen posteriorly and on the right. Reviewed by: Dalton Ferrera MD on 03/12/2024 4:33 PM [id number] Approved by: Dalton Ferrera MD on 03/12/2024 4:33 PM AKDT Station ID: [id number]
--- NOTE | 2024-03-12 17:37 | CT Report ---
PROCEDURE: Cervical Spine WO INDICATIONS: fall, neck pain TECHNIQUE: Noncontrast 3 mm thick sections acquired from the skull base to the T4 level. Sagittal and coronal r eformats were then constructed. For radiation dose reduction, the following was used: automated exp osure control, adjustment of mA and/or kV according to patient size. COMPARISON: Correlation is made with CT neck, 05/26/2019. Correlation is also made with the accompany ing imaging. FINDINGS: Image quality: Excellent. Bones: No fractures or dislocations. Visualized superior ribs are intact. Focal degenerative change can be seen involving the C1-C2 interface anteriorly. Mild disc space narro wing can be seen at C3-C4. Minimal anterolisthesis can be seen at the C4-C5 level. At least moderate disc space narrowing can be seen at C4-C5. Moderate to severe disc space narrowing seen at C5-C6 and at C6-C7. Posterior directed endplate osteophytes are seen, which are worst at C5-C6. Soft tissues: Prevertebral soft tissues are normal in thickness. No paravertebral hematomas. No ap ical pneumothoraces. Atherosclerotic calcification is seen. IMPRESSION: Negative for acute fracture. Multiple levels of significant underlying degenerative change can be seen, which are overall worst at C5-C6. Reviewed by: Dalton Ferrera MD on 03/12/2024 4:35 PM PATO Approved by: Dalton Ferrera MD on 03/12/2024 4:35 PM PATO Station ID: [id number]
--- NOTE | 2024-03-12 18:27 | ED Physician Documentation ---
History of Present Illness - Stated complaint Stated Complaint: GLF, NOSE/MOUTH INJ - Chief complaint Chief Complaint: Trauma Hd/Nk - History obtained from History obtained from: Patient, Family - History of Present Illness Timing: Today Pain level max: 4 Pain level now: 4 - Additonal information Additional information: 83-year-old female presents to the emergency department after a fall today. Patient tripped and fell over her feet onto a rug. Landed on her face. No neck or back pain. No shoulder pain, no hip pain. No knee pain. Not on blood thinners. No loss of consciousness. Tetanus up-to-date. Review of Systems Constitutional: denies: Fever, Chills GI: denies: Vomiting, Diarrhea Skin: denies: Rash Musculoskeletal: denies: Neck pain, Back pain Neurologic: reports: Head injury. 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 : Incontinence HEENT: None Psych: None Musculoskeletal: None Derm: None - Past Surgical History Past Surgical History: Yes General: Bowel surgery, Hiatal hernia repair, Colonoscopy Ortho: Knee replacement - Present Medications Home Medications: Ambulatory Orders Medication Instructions Recorded Confirmed Multivitamin [Multiple Vitamins] 1 tab PO DAILY 10/24/16 04/23/20 Lactobacillus Acidophilus 1 tab PO DAILY 12/19/19 04/23/20 [Probiotic Acidophilus] Nitrofurantoin Monohyd/M-Cryst 100 mg PO BID #10 capsule 07/09/20 [Macrobid 100 mg Capsule] Aspirin 81 DAILY 09/07/20 HYDROcod/ACETAM 5/325 [[place] 5/325] 1 ea PO Q6H PRN #10 tablet 09/07/20 amLODIPine [Norvasc] 09/07/20 Oxycodone HCl/Acetaminophen 1 - 2 each PO Q6H PRN #30 tablet 05/26/22 [Percocet 5-325 mg Tablet] cephALEXin [Keflex] 500 mg PO Q6H #20 cap 07/18/22 - Allergies Allergies/Adverse Reactions: Allergies Allergy/AdvReac Type Severity Reaction Status Date / Time Sulfa (Sulfonamide Allergy Severe Itching Verified 03/12/24 16:38 Antibiotics) erythromycin base Allergy Intermediate Rash Verified 03/12/24 16:38 [Erythromycin Base] - Social History Does the pt smoke?: No Smoking Status: Never smoker Does the pt drink ETOH?: No Does the pt have substance abuse?: No - Immunizations Immunizations are current?: Yes - POLST Patient has POLST: Yes POLST Status: DNR PD ED PE NORMAL - Vitals Vital signs reviewed: Yes - General General: Alert and oriented X 3, No acute distress - HEENT HEENT: PERRL, Ears normal, Moist mucous membranes, Pharynx benign, Other (nasal swelling, laceration to the bridge of the nose. ) - Neck Neck: Other (mild upper c-spine TTP. no stepoff or deformity) - Cardiac Cardiac: RRR - Respiratory Respiratory: No respiratory distress, Clear bilaterally - Abdomen Abdomen: Soft, Non tender, Non distended - Back Back: No spinal TTP - Derm Derm: Warm and dry - Extremities Extremities: No edema - Neuro Neuro: Alert and oriented X 3 - Psych Psych: Normal mood, Normal affect Results - Vitals Vitals: Vital Signs - 24 hr 03/12/24 03/12/24 16:27 19:14 Temperature 36.6 C Heart Rate 53 L 60 Respiratory 17 20 Rate Blood Pressure 163/135 H 98/56 L O2 Saturation 100 98 Oxygen O2 Source [] Room air O2 Source [] Room air O2 Source Room air - Rads (name of study) head CT Relevant Findings:: Final report received, See rad report c-spine CT Relevant Findings:: Final report received, See rad report maxillofacial CT Relevant Findings:: Final report received, See rad report PD Medical Decision Making - ED course Complexity details: reviewed results, re-evaluated patient, considered differential, d/w patient ED course: 83-year-old female status post a trip and fall at home. No acute findings on head CT or cervical spine CT. Has an abrasion to the bridge of the nose. This was cleansed and bandaged. Tetanus is up-to-date. She has nasal bone fracture on CT scan, maxillofacial. Patient is ambulating without difficulty. No pain in the hips, knees, shoulders. We will have her follow-up with her doctor for further care. Recommend that she follow-up with [facility] once the swelling has decreased. Patient and family counseled regarding signs and symptoms for which I believe and urgent re-evaluation would be necessary. Patient with good understanding of and agreement to plan and is comfortable going home at this time This document was made in part using voice recognition software. While efforts are made to proofread this document, sound alike and grammatical errors may occur. Departure - Departure Disposition: 01 Home, Self Care Clinical Impression: Nasal bone fracture Qualifiers: Encounter type: initial encounter Fracture type: closed Qualified Code(s): S02.2XXA - Fracture of nasal bones, initial encounter for closed fracture Nasal laceration Qualifiers: Encounter type: initial encounter Qualified Code(s): S01.21XA - Laceration without foreign body of nose, initial encounter Condition: Good Instructions: ED Fx Nasal Conf W X Ray, ED Head Injury Closed Follow-Up: Izaiah Meza MD [Primary Care Provider] - Within 1 week Coy Singletary DDS [Provider Admit Priv/Credential] - Comments: Your CT scan does show a nasal bone fracture, otherwise your CT scan are negative. The glue will dissolve on its own. Do not apply ointment as this may dissolve the glue. Please follow-up with your doctor for further care. You may need to follow-up with an oral maxillofacial surgeon depending on how your nose is healing. I have listed a local surgeon on your paperwork. Forms: PCP List Discharge Date/Time: 03/12/24 19:16
[2024-03-12] MEDS: HYDROcod/ACETAM 5/325 MG TABLET PO STA (19:04)
[2024-03-12 19:15] VITALS: BP 98/56; O2SAT 98
== END 2024-03-12 19:16 | disposition home or self-care (01) ==
LOC: ED 16:17
DX: S02.2XXB Fracture of nasal bones, initial encounter for open fracture (principal); W01.198A Fall on same level from slipping, tripping and stumbling with subsequent striking against other object, initial encounter; Y92.099 Unspecified place in other non-institutional residence as the place of occurrence of the external cause; I10 Essential (primary) hypertension; F03.90 Unspecified dementia, unspecified severity, without behavioral disturbance, psychotic disturbance, mood disturbance, and anxiety
CPT/HCPCS: 70450; 70486; 72125; 99284; A9270

== ENCOUNTER 2024-03-13 14:01 | Outpatient (CLI) | payer MEDICARE, BC | END 2024-03-13 23:59 | disposition critical access hospital (66) | LOC: EMS 14:01 | DX: R53.1 Weakness (principal); R11.2 Nausea with vomiting, unspecified; R26.89 Other abnormalities of gait and mobility; Z91.81 History of falling | CPT/HCPCS: A0425; A0427 ==

== ENCOUNTER 2024-03-13 14:16 | Emergency (ER) | payer MEDICARE, BC ==
--- NOTE | 2024-03-13 14:36 | ED Physician Documentation ---
History of Present Illness - Stated complaint Stated Complaint: GEN WEAKNESS/VOMIT - Chief complaint Chief Complaint: Neuro - History obtained from History obtained from: Patient, EMS - History of Present Illness Pain level max: 3 Pain level now: 3 - Additonal information Additional information: 83-year-old female was seen here yesterday after a trip and fall. She had a negative head CT, negative cervical spine CT. Maxillofacial CT showed a nasal bone fracture. She states that this morning she had vomiting. States has no headache. No focal neurological deficits. No numbness or tingling. She received Zofran with EMS and states that she feels much better. No abdominal pain. No chest pain. No shortness of breath. No fevers. No urinary symptoms. Review of Systems Constitutional: denies: Fever, Chills Respiratory: denies: Cough GI: reports: Vomiting. 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 : Incontinence HEENT: None Psych: None Musculoskeletal: None Derm: None - Past Surgical History Past Surgical History: Yes General: Bowel surgery, Hiatal hernia repair, Colonoscopy Ortho: Knee replacement - Present Medications Home Medications: Ambulatory Orders Medication Instructions Recorded Confirmed Multivitamin [Multiple Vitamins] 1 tab PO DAILY 10/24/16 04/23/20 Lactobacillus Acidophilus 1 tab PO DAILY 12/19/19 04/23/20 [Probiotic Acidophilus] Nitrofurantoin Monohyd/M-Cryst 100 mg PO BID #10 capsule 07/09/20 [Macrobid 100 mg Capsule] Aspirin 81 DAILY 09/07/20 HYDROcod/ACETAM 5/325 [[place] 5/325] 1 ea PO Q6H PRN #10 tablet 09/07/20 amLODIPine [Norvasc] 09/07/20 Oxycodone HCl/Acetaminophen 1 - 2 each PO Q6H PRN #30 tablet 05/26/22 [Percocet 5-325 mg Tablet] cephALEXin [Keflex] 500 mg PO Q6H #20 cap 07/18/22 Ondansetron Odt [Zofran] 4 mg TL Q6H PRN #10 tablet 03/13/24 - Allergies Allergies/Adverse Reactions: Allergies Allergy/AdvReac Type Severity Reaction Status Date / Time Sulfa (Sulfonamide Allergy Severe Itching Verified 03/13/24 14:26 Antibiotics) erythromycin base Allergy Intermediate Rash Verified 03/13/24 14:26 [Erythromycin Base] - Social History Does the pt smoke?: No Smoking Status: Never smoker Does the pt drink ETOH?: No Does the pt have substance abuse?: No - Immunizations Immunizations are current?: Yes - POLST Patient has POLST: Yes POLST Status: DNR PD ED PE NORMAL - Vitals Vital signs reviewed: Yes - General General: Alert and oriented X 3, No acute distress, Well developed/nourished - HEENT HEENT: PERRL, Moist mucous membranes, Other (Ecchymosis to the bridge of the nose and under the bilateral eyes. Otherwise mild swelling to the bridge of the nose. Otherwise normal examination of the head.) - Neck Neck: Supple, no meningeal sign, No bony TTP - Cardiac Cardiac: RRR, Strong equal pulses - Respiratory Respiratory: No respiratory distress, Clear bilaterally - Abdomen Abdomen: Soft, Non tender, Non distended - Derm Derm: Warm and dry - Extremities Extremities: No edema, No calf tenderness / cord - Neuro Neuro: Alert and oriented X 3 - Psych Psych: Normal mood, Normal affect Results - Vitals Vitals: Vital Signs - 24 hr 03/13/24 03/13/24 14:19 16:16 Temperature 36.2 C L Heart Rate 46 L 56 L Respiratory 20 18 Rate Blood Pressure 130/85 H 154/79 H O2 Saturation 100 97 Oxygen O2 Source [With Activity] Room air O2 Source [Without Activity] Room air O2 Source Room air - Labs Labs: Laboratory Tests 03/13/24 03/13/24 03/13/24 14:37 14:37 14:44 WBC 6.0 RBC 4.19 L Hgb 12.3 Hct 40.2 MCV 95.9 MCH 29.4 MCHC 30.6 L RDW 13.2 Plt Count 298 MPV 9.2 Neut # (Auto) 4.3 Lymph # (Auto) 1.1 L [place] # (Auto) 0.4 Eos # (Auto) 0.2 Baso # (Auto) 0.1 Absolute Nucleated RBC 0.00 Nucleated RBC % 0.0 Sodium 136 Potassium 3.8 Chloride 106 Carbon Dioxide 23 Anion Gap 7.0 BUN 14 Creatinine 0.9 Estimated GFR (MDRD) 60 L Glucose 112 H Calcium 9.2 Total Bilirubin 0.4 AST 183 H ALT 88 H Alkaline Phosphatase 172 H Total Protein 6.8 Albumin 3.9 Globulin 2.9 Albumin/Globulin Ratio 1.3 Lipase 14 Urine Color YELLOW Urine Clarity CLOUDY Urine pH 6.0 Ur Specific [place] 1.020 Urine Protein NEGATIVE Urine Glucose (UA) NEGATIVE Urine Ketones NEGATIVE Urine Occult Blood NEGATIVE Urine Nitrite POSITIVE H Urine Bilirubin NEGATIVE Urine Urobilinogen 1 (NORMAL) Ur Leukocyte Esterase NEGATIVE Urine RBC 0-5 Urine WBC 4-5 Ur Squamous Epith Cells RARE Squamous Amorphous Sediment Few Urine Bacteria Many H Ur Microscopic Review INDICATED Urine Culture Comments INDICATED PD Medical Decision Making - ED course Complexity details: reviewed results, re-evaluated patient, considered differential, d/w patient ED course: No significant laboratory abnormalities. Urinalysis appears contaminated. Does not have an elevated white blood cell count. No dysuria. No urinary symptoms. We will not treat at this point. Tolerating p.o. without difficulty. No headache. No indication for repeat head CT today. No focal neurological deficits. GCS 15. Will prescribe Zofran for home and have her follow-up closely with her doctor for further care. Patient counseled regarding signs and symptoms for which I believe and urgent re-evaluation would be necessary. Patient with good understanding of and agreement to plan and is comfortable going home at this time This document was made in part using voice recognition software. While efforts are made to proofread this document, sound alike and grammatical errors may occur. Departure - Departure Disposition: 01 Home, Self Care Clinical Impression: Elevated liver enzymes Vomiting Qualifiers: Vomiting type: unspecified Nausea presence: with nausea Qualified Code(s): R11.2 - Nausea with vomiting, unspecified Closed head injury Qualifiers: Encounter type: initial encounter Qualified Code(s): S09.90XA - Unspecified injury of head, initial encounter Condition: Good Instructions: ED Head Injury Closed, ED Nausea Vomiting Follow-Up: your,doctor in 1 week [Other] Prescriptions: Ondansetron Odt [Zofran] 4 mg TL Q6H PRN #10 tablet PRN Reason: Nausea / Vomiting Comments: Your liver enzymes are mildly elevated today. The cause of this is unclear, these should be rechecked in 1 week with your doctor to see if they are rising or decreasing. Please return for increasing vomiting, fevers, abdominal pain or other new or worrisome symptoms. [facility] [place]. Forms: PCP List Discharge Date/Time: 03/13/24 16:16
[2024-03-13 14:43] LABS: BASOPHILS # (AUTO) 0.1 10^3/uL (0.0-0.1); BASOPHILS % (AUTO) 1.2 %; EOSINOPHILS # (AUTO) 0.2 10^3/uL (0.0-0.7); EOSINOPHILS % (AUTO) 3.5 %; HCT - HEMATOCRIT 40.2 % (37.0-47.0); HGB - HEMOGLOBIN 12.3 g/dL (12.0-16.0); LYMPHOCYTES # (AUTO) 1.1 10^3/uL (1.5-3.5); LYMPHOCYTES % (AUTO) 17.4 %; MEAN CORPUSCULAR HEMOGLOBIN 29.4 pg (27.0-31.0); MEAN CORPUSCULAR HGB CONC 30.6 g/dL (32.0-36.0); MEAN CORPUSCULAR VOLUME 95.9 fL (81.0-99.0); MEAN PLATELET VOLUME 9.2 fL (7.9-10.8); MONOCYTES # (AUTO) 0.4 10^3/uL (0.0-1.0); MONOCYTES % (AUTO) 6.6 %; NEUTROPHILS # (AUTO) 4.3 10^3/uL (1.5-6.6); NEUTROPHILS % (AUTO) 71.1 %; PLT - PLATELET COUNT 298 10^3/uL (130-450); RED BLOOD COUNT 4.19 10^6/uL (4.20-5.40); RED CELL DISTRIBUTION WIDTH 13.2 % (12.0-15.0)
[2024-03-13 14:59] LABS: ALBUMIN 3.9 g/dL (3.2-5.5); ALBUMIN/GLOBULIN RATIO 1.3 (1.0-2.2); BILIRUBIN,TOTAL 0.4 mg/dL (0.2-1.0); CALCIUM 9.2 mg/dL (8.5-10.3); CREATININE 0.9 mg/dL (0.6-1.3); POTASSIUM 3.8 mmol/L (3.5-4.5); TOTAL PROTEIN 6.8 g/dL (6.4-8.9)
[2024-03-13 15:06] LABS: BILIRUBIN,URINE NEGATIVE (NEGATIVE); GLUCOSE, URINE (UA) NEGATIVE (NEGATIVE); KETONES,URINE (UA) NEGATIVE (NEGATIVE); LEUKOCYTE ESTERASE, URINE NEGATIVE (NEGATIVE); NITRITE,URINE POSITIVE (NEGATIVE); OCCULT BLOOD,URINE NEGATIVE (NEGATIVE); PROTEIN,URINE NEGATIVE (NEGATIVE); UROBILINOGEN,URINE 1 (NORMAL) E.U./dL (NORMAL)
[2024-03-13 15:12] LABS: CLARITY,URINE CLOUDY (CLEAR)
[2024-03-13 15:20] LABS: AMORPHOUS SEDIMENT,UR Few /LPF; BACTERIA,URINE Many /HPF (None Seen); RBC,URINE 0-5 /HPF (0-5); SQUAMOUS EPITHELIAL CELL,UR RARE Squamous (<= Few)
[2024-03-13 16:18] VITALS: BP 154/79; O2SAT 97
--- NOTE | 2024-03-15 13:27 | ED Physician Documentation ---
ED Addendum - Addendum Addendum: 03/15/24 13:27 Culture reviewed. She is on Keflex which appears to be appropriate based on sensitivities.
== END 2024-03-13 16:16 | disposition home or self-care (01) ==
LOC: EDUNIT# → ED 14:16
DX: S09.90XA Unspecified injury of head, initial encounter (principal); W01.0XXA Fall on same level from slipping, tripping and stumbling without subsequent striking against object, initial encounter; R11.2 Nausea with vomiting, unspecified; R74.8 Abnormal levels of other serum enzymes; I10 Essential (primary) hypertension; F03.90 Unspecified dementia, unspecified severity, without behavioral disturbance, psychotic disturbance, mood disturbance, and anxiety; Z79.899 Other long term (current) drug therapy; Z79.82 Long term (current) use of aspirin; Z66 Do not resuscitate
CPT/HCPCS: 36415; 51701; 80053; 81001; 81003; 83690; 85025; 87086; 87181; 99283; 99284